=== PATIENT | male | born 1945 | race African-American/Black ===

== ENCOUNTER 2016-12-09 15:36 | Emergency (ER) | payer MEDICARE ==
[~2016-12-09] VITALS: Ht 170.2 cm; Wt 75.7 kg
[~2016-12-09 15:36] MED LIST: PAIN MED
[2016-12-09] MEDS ORDERED: HYDR-971 PO (15:58)
[2016-12-09] MEDS ORDERED: SULF1TAB24 PO (15:58)
[2016-12-09] MEDS ORDERED: MUPI15CR TP (15:58)
--- NOTE | 2016-12-09 15:58 | PHYS DOC ---
Past Medical History Past Medical History: Arthritis Past Surgical History: Other Additional Past Surgical Histo: HERNIA Alcohol Use: None Drug Use: None Adult General Chief Complaint Chief Complaint: INSECT BITE HPI HPI Patient is a 71 year old male with history of hep C who presents with an abscess on the left buttock that he noted yesterday. Patient believes it is from an insect bite. Review of Systems Review of Systems Constitutional: Denies fever or chills [] Musculoskeletal: Denies back pain or joint pain [] Integument: abscess on the left buttock Neurologic: Denies headache, focal weakness or sensory changes [] Allergies Allergies Allergies Coded Allergies Type Severity Reaction Last Updated Verified No Known Drug Allergies 07/17/14 No Physical Exam Physical Exam Constitutional: Well developed, well nourished, no acute distress, non-toxic appearance. [] Skin: Warm, dry, left buttock with none indurated firm area approximately 2 x 2 centimeter. There is a scab over the center of this area. The area is warm and erythematous. Back: No tenderness, no CVA tenderness. [] Extremities: No tenderness, no cyanosis, no clubbing, ROM intact, no edema. [] Neurologic: Alert and oriented X 3, normal motor function, normal sensory function, no focal deficits noted. [] Psychologic: Affect normal, judgement normal, mood normal. [] EKG EKG [] Radiology/Procedures Radiology/Procedures [] Course & Med Decision Making Course & Med Decision Making Pertinent Labs and Imaging studies reviewed. (See chart for details) Patient has an abscess on the left buttock that is not ready to be drained. Recommended warm compresses to the area. Discharged with Bactroban cream, and Bactrim. Follow-up with primary care doctor in one week. Instructed to return to the ED at any point symptoms worsen. Dragon Disclaimer Dragon Disclaimer This electronic medical record was generated, in whole or in part, using a voice recognition dictation system. Departure Departure Impression: Primary Impression: Abscess of buttock, left Disposition: 01 HOME, SELF-CARE Condition: STABLE Referrals: TIMBO CUNNINGHAM MD (PCP) Follow-up in one week Patient Instructions: Abscess Additional Instructions: You have an abscess on her left buttock that is not ready to be drained. Please apply warm compresses to the area twice a day. Take the prescribed antibiotics until completed. Take the pain medicine as needed for pain. You can get a donut cushion to sit on for comfort they area sold at any drug store including [employer]. Follow-up with your doctor in the next 7 days. Scripts Hydrocodone/Apap 5-325 (NORCO 5-325 TABLET) 1 Each Tablet 1-2 TAB PO Q4-6HRS, #10 TAB Prov: TITA DONG APRN 12/09/16 Mupirocin Calcium (BACTROBAN CREAM) 15 Gm Cream..g. 1 TULIO TP TID, #30 GM Prov: TITA DONG APRN 12/09/16 Sulfamethoxazole/Trimethoprim (BACTRIM DS TABLET) 1 Each Tablet 1 TAB PO BID, #20 TAB Prov: TITA DONG APRN 12/09/16 TITA DONG APRN Dec 09, 2016 15:58
[2016-12-09 16:00] VITALS: BP 149/76
[2016-12-09] MEDS ORDERED: DIPHTH,PERTUSS(ACELL),TET TOX 0.5 ML DISP.SYRIN. VAX IM ONE (16:00)
[2016-12-13] MEDS ORDERED: HYDR-971 PO (12:50)
== END 2016-12-09 16:15 | disposition home or self-care (01) ==
LOC: ER 15:36
DX: L02.31 Cutaneous abscess of buttock (principal)
CPT/HCPCS: 90471; 90715; 99283-25

== ENCOUNTER 2016-12-16 14:05 | Emergency (ER) | payer MEDICARE ==
[~2016-12-16] VITALS: Ht 170.2 cm; Wt 73.5 kg
[~2016-12-16 14:05] MED LIST changes: +HYDR-971 PO; +MUPI15CR TP; +SULF1TAB24 PO
[2016-12-16] MEDS ORDERED: fentaNYL PF VIAL 100 MCG/2 ML VIAL IV PRN (14:45)
[2016-12-16 15:17] LABS: BASO % 1 % (0-3); EOS % 2 % (0-3); HEMATOCRIT 40.9 % (39.0-53.0); HEMOGLOBIN 13.6 g/dL (13.0-17.5); LYMPH # 1.3 x10^3/uL (1.0-4.8); LYMPH % 24 % (24-48); MEAN CORPUSCULAR HEMOGLOBIN 29 pg (25-35); MEAN CORPUSCULAR HGB CONC 33 g/dL (31-37); MEAN CORPUSCULAR VOLUME 88 fL (79-100); MONO % 9 % (0-9); NEUT % 65 % (31-73); PLATELET COUNT 249 x10^3/uL (140-400); RED BLOOD COUNT 4.65 x10^6/uL (4.30-5.70); RED CELL DISTRIBUTION WIDTH 13.3 % (11.5-14.5); WHITE BLOOD COUNT 5.5 x10^3/uL (4.0-11.0)
[2016-12-16 15:25] LABS: CALCIUM 8.9 mg/dL (8.5-10.1); CREATININE 1.4 mg/dL (0.7-1.3); GFR 60.4; POTASSIUM 4.4 mmol/L (3.5-5.1)
[2016-12-16] MEDS ORDERED: IOHEXOL 300 MG/ML 75 ML VIAL IV ONE (15:30)
--- NOTE | 2016-12-16 15:31 | ED.ADGEN ---
Past Medical History Past Medical History: Arthritis Past Surgical History: Other Additional Past Surgical Histo: HERNIA Alcohol Use: None Drug Use: None Adult General Chief Complaint Chief Complaint: ABSCESS HPI HPI Patient is a 71 year old man, history of arthritis, who presents to the emergency department with complaint of worsening left buttock pain. Patient was initially seen on 12/09, and noted to have a left buttock abscess, that time the patient was started on antibiotics, and told to return if symptoms worsen. Patient then returned on 12/13, at that time the left buttock abscesses I&D, and patient was discharged in a second course of antibiotic. Patient presents stating that the pain has become worse, and has persistent drainage, he states that he was told "the packing would fall out on its own", but has not. Patient does state however that he is not change the dressing since he was seen in the ED. He denies any fevers or chills, states the pain is worse, is now lancinating and radiating down his left lower extremity. He denies any new injuries, any nausea or vomiting, any weakness, numbness or tingling. He states he has been compliant with the antibiotic regimen as prescribed. He states he has been using his typical pain medications at home without relief. Review of Systems Review of Systems Constitutional: Denies fever or chills. [] Eyes: Denies change in visual acuity. [] HENT: Denies nasal congestion or sore throat. [] Respiratory: Denies cough or shortness of breath. [] Cardiovascular: Denies chest pain or edema. [] GI: Denies abdominal pain, nausea, vomiting, bloody stools or diarrhea. [] : Denies dysuria. [] Musculoskeletal: Denies back pain or joint pain. Pain in the left buttock radiating down the left lower extremity. Integument: Denies rash. [] Neurologic: Denies headache, focal weakness or sensory changes. [] Endocrine: Denies polyuria or polydipsia. [] Lymphatic: Denies swollen glands. [] Psychiatric: Denies depression or anxiety. [] Current Medications Current Medications Current Medications Medications (Trade) Dose Ordered Sig/Gera Start Time Stop Time Status Last Admin Dose Admin Fentanyl Citrate (Fentanyl 2ml Vial) 25 mcg PRN Q15MIN PRN 12/16/16 14:45 12/17/16 14:44 12/16/16 14:58 25 MCG Info (Do NOT chart on this entry -- for MONITORING) 1 each PRN DAILY PRN 12/16/16 15:45 12/18/16 15:44 Iohexol (Omnipaque 300 Mg/ml) 75 ml 1X ONCE 12/16/16 15:30 12/16/16 15:31 DC 12/16/16 15:39 75 ML Allergies Allergies Allergies Coded Allergies Type Severity Reaction Last Updated Verified No Known Drug Allergies 07/17/14 No Physical Exam Physical Exam Constitutional: Well developed, well nourished, no acute distress, non-toxic appearance. [] HENT: Normocephalic, atraumatic, bilateral external ears normal, oropharynx moist, no oral exudates, nose normal. [] Eyes: PERRLA, EOMI, conjunctiva normal, no discharge. [] Neck: Normal range of motion, no tenderness, supple, no stridor. [] Cardiovascular:Heart rate regular rhythm, no murmur, S1, S2, no rubs or gallops. [] Lungs & Thorax: Tinnitus present at bases bilaterally, no rhonchi or rales appreciated. No wheezing.[] Abdomen: Bowel sounds normal, soft, no tenderness, no rebound, rigidity, no guarding, no masses, no pulsatile masses. [] Skin: Warm, dry, no erythema, no rash, over the medial aspect of the left buttock, patient has an area of 2 cm x 2 cm which is open, status post I&D, with active drainage of purulent serosanguineous material, patient has area of induration and tenderness that extends a tenderness by 600 m across this region , difficult to examine secondary to patient discomfort, although it does not appear to include upon the rectum, or extend beyond the subcutaneous continues region of the buttock, difficult examination second to patient compliance. No surrounding cellulitis, no other areas of abnormality on examination. Back: No tenderness, no CVA tenderness. [] Extremities: No tenderness, no cyanosis, no clubbing, ROM intact, no edema. [] Neurologic: Alert and oriented X 3, normal motor function, normal sensory function, no focal deficits noted. [] Psychologic: Affect normal, judgement normal, mood normal. [] Current Patient Data Vital Signs Vital Signs Date Time Temp Pulse Resp B/P (MAP) Pulse Ox O2 Delivery O2 Flow Rate FiO2 12/16/16 15:50 80 20 129/63 (85) 98 Room Air 12/16/16 14:19 98.0 98.0 Lab Values Laboratory Tests Test 12/16/16 14:50 White Blood Count 5.5 x10^3/uL (4.0-11.0) Red Blood Count 4.65 x10^6/uL (4.30-5.70) Hemoglobin 13.6 g/dL (13.0-17.5) Hematocrit 40.9 % (39.0-53.0) Mean Corpuscular Volume 88 fL (79-100) Mean Corpuscular Hemoglobin 29 pg (25-35) Mean Corpuscular Hemoglobin Concent 33 g/dL (31-37) Red Cell Distribution Width 13.3 % (11.5-14.5) Platelet Count 249 x10^3/uL (140-400) Neutrophils (%) (Auto) 65 % (31-73) Lymphocytes (%) (Auto) 24 % (24-48) Monocytes (%) (Auto) 9 % (0-9) Eosinophils (%) (Auto) 2 % (0-3) Basophils (%) (Auto) 1 % (0-3) Neutrophils # (Auto) 3.6 x10^3uL (1.8-7.7) Lymphocytes # (Auto) 1.3 x10^3/uL (1.0-4.8) Monocytes # (Auto) 0.5 x10^3/uL (0.0-1.1) Eosinophils # (Auto) 0.1 x10^3/uL (0.0-0.7) Basophils # (Auto) 0.0 x10^3/uL (0.0-0.2) Sodium Level 138 mmol/L (136-145) Potassium Level 4.4 mmol/L (3.5-5.1) Chloride Level 101 mmol/L (98-107) Carbon Dioxide Level 30 mmol/L (21-32) Anion Gap 7 (6-14) Blood Urea Nitrogen 12 mg/dL (8-26) Creatinine 1.4 mg/dL (0.7-1.3) H Estimated GFR (Cockcroft-Gault) 60.4 Glucose Level 83 mg/dL (70-99) Calcium Level 8.9 mg/dL (8.5-10.1) Laboratory Tests 12/16/16 14:50 Laboratory Tests 12/16/16 14:50 EKG EKG Not indicated.[] Radiology/Procedures Radiology/Procedures [] Course & Med Decision Making Course & Med Decision Making Pertinent Labs and Imaging studies reviewed. (See chart for details) Patient states that he experiences significant discomfort with his previous I&D despite attempts to assess the region, I did discuss with patient it is difficult to anesthetize the area with the degree of inflammation. He states he has been compliant with all medications without relief. He is agreeable to receiving additional imaging the area to rule out any tracking, laboratory studies, and pain medication. Tetanus was updated in the patient's prior evaluation. Laboratory studies and imaging are pending at time of shift change, information as above was discussed with Dr. Garcia, who will follow-up on these results and disposition the patient. CT IMPRESSION: Increased vascularity, subcutaneous stranding and skin thickening involving the left buttock compatible with the history provided, abscess. No discrete fluid collection, amenable to drainage is seen. Chronic musculoskeletal changes. Enlarged prostate I have received this patient in sign out. I have discussed the results of the CT scan with the patient and reevaluated the patient prior to discharge. I have given the patient instructions for follow-up in 2-3 days with His primary care doctor, patient and family agree to follow-up as directed for recheck and reevaluation of the wound. Patient is already on antibiotics he will continue to take . Wound Care instructions have been provided to the patient. Gen: Alert and oriented 3, no acute distress, nontoxic. At the time of my evaluation vital signs are within normal limits Resp: No tachypnea, no respiratory distress CV: Regular rate and rhythm, normal perfusion Abdomen non distended Skin: incision at left buttock healing by secondary intention, no obvious abscess, has induration, no surrounding cellulitis Extr: wnl, no DVT Neuro: no focal deficits Psych: normal mood, normal attention Dragon Disclaimer Dragon Disclaimer This electronic medical record was generated, in whole or in part, using a voice recognition dictation system. Departure Impression: Primary Impression: Abscess of buttock, left Disposition: HOME, SELF-CARE Condition: STABLE Patient Instructions: Wound Care, [id number] Additional Instructions: Please follow-up with your PCP for recheck and reevaluation in 2-3 days. Please change wound dressings 2-3 times a day, keep wound dry and clean. Please do not apply peroxide or alcohol to the wound. Please take your antibiotics as directed. If he started developing worsening pain or worsening symptoms return to the ED immediately for further reevaluation and recheck. JESSICA FARIAS DO Dec 16, 2016 15:31 Astrid GARCIA MD Dec 16, 2016 16:27
[2016-12-16] MEDS ORDERED: CONTRAST GIVEN MC PRN (15:45)
[2016-12-16 15:50] VITALS: BP 129/63
--- NOTE | 2016-12-16 15:59 | RAD ---
Indication left buttock abscess 4-5 days ago. Axial images through the pelvis were obtained. IV contrast, approximately 75 cc of Omnipaque 300 was administered. No recent imaging of the pelvis is available. The visualized liver and kidneys appear unremarkable. There is some mild adenopathy in the left groin likely reactive. The prostate is mildly enlarged. There are degenerative changes in the visualized lumbar spine. There is some increased vascularity seen in the area of the left buttock. This would be compatible with the history of recent abscess. There is some stranding in the soft tissues of the left buttock and some skin thickening but a discrete abscess, amenable to drainage is not seen. IMPRESSION: Increased vascularity, subcutaneous stranding and skin thickening involving the left buttock compatible with the history provided, abscess. No discrete fluid collection, amenable to drainage is seen. Chronic musculoskeletal changes. Enlarged prostate PQRS Compliance Statement: One or more of the following individualized dose reduction techniques were utilized for this examination: 1. Automated exposure control 2. Adjustment of the mA and/or kV according to patient size 3. Use of iterative reconstruction technique
== END 2016-12-16 16:46 | disposition home or self-care (01) ==
LOC: ER 14:05
DX: L02.31 Cutaneous abscess of buttock (principal)
CPT/HCPCS: 36415; 74170; 80048; 85025; 96374; 99285; J3010; Q9967

== ENCOUNTER → 2016-12-19 | Outpatient (CLI) | payer MEDICARE ==
[2016-12-16 15:50] VITALS: BP 129/63
== END | disposition home or self-care (01) ==
LOC: PMGWOUND 09:15
PROVIDERS: ATTEND Emergency Medicine Undersea and Hyperbaric Medicine
DX: L02.31 Cutaneous abscess of buttock (principal); Z87.891 Personal history of nicotine dependence
CPT/HCPCS: 99214

== ENCOUNTER → 2016-12-19 | Day surgery (SDC) | payer BC ==
[~2016-12-19] MED LIST changes: +ALLO300T PO; +ASPI-630 PO; +CEPH-263 PO; +IV RINGERS,LACTATED 1000ML 1,000 ML IV SCH; +LIDOCAINE 1% PF 2 ML VIAL. ID PRN; +LIDOCAINE 2% PF Vial for OR 5 ML VIAL. ONE; +LOSA100T6 PO; +MIDAZOLAM HCL/PF 2 MG/2 ML VIAL. IV PRN; +PROPOFOL 40 ML IV ONE; +fentaNYL PF VIAL 100 MCG/2 ML VIAL IV PRN
[2016-12-19 12:55] VITALS: BP 128/80
--- NOTE | 2016-12-20 03:09 | CONS ---
DATE OF CONSULTATION: 12/19/2016 REFERRING PHYSICIAN: Talya Rodriguez MD REASON: History of colonic polyps. HISTORY OF PRESENT ILLNESS: A 64-year-old male with past medical history significant for diverticulosis, history of colonic polyps, hypertension as well as gout is seen for interval exam. Bowel habits are regular without diarrhea or constipation. There has been no melena and/or hematochezia. Weight and appetite are stable. Family history is unrevealing for colon polyps or colon cancer. He is otherwise without additional complaints. PAST MEDICAL HISTORY: Gout, hypertension, history of colonic polyps, diverticulosis. ALLERGIES: None. MEDICATIONS: Include allopurinol, aspirin and losartan. FAMILY HISTORY: Significant for diabetes. SOCIAL HISTORY: He is a nonsmoker, social drinker. PAST SURGICAL HISTORY: Noncontributory. REVIEW OF SYSTEMS: Per records. PHYSICAL EXAMINATION: GENERAL: Well-nourished, well-developed male. VITAL SIGNS: Temperature is 97, pulse 66, respirations 20. HEENT: Normocephalic and atraumatic head. Pupils and extraocular movements not tested. Sclerae anicteric. NECK: Supple. LUNGS: Clear. CARDIOVASCULAR: Reveals S1, S2, without S3, S4 or appreciable murmur. ABDOMEN: Soft abdomen, normal bowel sounds, without appreciable hepatosplenomegaly. EXTREMITIES: Reveals no cyanosis, clubbing or edema. IMPRESSION: History of colonic polyps. Surveillance exam is warranted at this time. Risks and benefits of procedure have been previously discussed including risk of hemorrhage or perforation. He is willing to proceed at this time. MARIO ALBERTO BRENNAN MD DR: GUI/nts JOB#: [id number] / [id number]
== END | disposition home or self-care (01) ==
LOC: EDBD → ENDOS 10:59 → MERGE 10:59
PROVIDERS: ATTEND Internal Medicine Gastroenterology
DX: Z09 Encounter for follow-up examination after completed treatment for conditions other than malignant neoplasm (principal); Z86.010 Personal history of colon polyps; K64.0 First degree hemorrhoids; K57.30 Diverticulosis of large intestine without perforation or abscess without bleeding; I10 Essential (primary) hypertension; M19.91 Primary osteoarthritis, unspecified site; Z87.39 Personal history of other diseases of the musculoskeletal system and connective tissue
CPT/HCPCS: 45378; J2704; J2001

== ENCOUNTER → 2016-12-30 | Outpatient (CLI) | payer MEDICARE ==
[2016-12-16 15:50] VITALS: BP 129/63
[~2016-12-30] MED LIST changes: -ALLO300T PO; -ASPI-630 PO; -CEPH-263 PO; -IV RINGERS,LACTATED 1000ML 1,000 ML IV SCH; -LIDOCAINE 1% PF 2 ML VIAL. ID PRN; -LIDOCAINE 2% PF Vial for OR 5 ML VIAL. ONE; -LOSA100T6 PO; -MIDAZOLAM HCL/PF 2 MG/2 ML VIAL. IV PRN; -PROPOFOL 40 ML IV ONE; -fentaNYL PF VIAL 100 MCG/2 ML VIAL IV PRN
== END | disposition home or self-care (01) ==
LOC: PMGWOUND 14:14
PROVIDERS: ATTEND Emergency Medicine Undersea and Hyperbaric Medicine
DX: L02.31 Cutaneous abscess of buttock (principal); Z87.891 Personal history of nicotine dependence
CPT/HCPCS: 99213

== ENCOUNTER → 2017-01-13 | Outpatient (CLI) | payer MEDICARE ==
[2016-12-16 15:50] VITALS: BP 129/63
[~2017-01-13] MED LIST changes: +ALLO300T PO; +ASPI-630 PO; +CEPH-263 PO; +LOSA100T6 PO
== END | disposition home or self-care (01) ==
LOC: PMGWOUND 14:00
PROVIDERS: ATTEND Emergency Medicine Undersea and Hyperbaric Medicine
DX: L02.31 Cutaneous abscess of buttock (principal); I10 Essential (primary) hypertension; M19.91 Primary osteoarthritis, unspecified site; Z87.891 Personal history of nicotine dependence
CPT/HCPCS: 99213

== ENCOUNTER → 2017-01-16 | Outpatient (CLI) | payer MEDICARE ==
[~2017-01-16] MED LIST changes: -CEPH-263 PO
== END | disposition home or self-care (01) ==
LOC: PMGWOUND 13:09
PROVIDERS: ATTEND Emergency Medicine Undersea and Hyperbaric Medicine
DX: L02.31 Cutaneous abscess of buttock (principal); I10 Essential (primary) hypertension; M19.91 Primary osteoarthritis, unspecified site; Z87.891 Personal history of nicotine dependence
CPT/HCPCS: 99213

== ENCOUNTER → 2017-01-20 | Outpatient (CLI) | payer MEDICARE | END | disposition home or self-care (01) | LOC: PMGWOUND 13:49 | PROVIDERS: ATTEND Emergency Medicine Undersea and Hyperbaric Medicine | DX: L02.31 Cutaneous abscess of buttock (principal); I10 Essential (primary) hypertension; M19.90 Unspecified osteoarthritis, unspecified site; Z87.891 Personal history of nicotine dependence | CPT/HCPCS: 99213 ==

== ENCOUNTER → 2017-01-27 | Outpatient (CLI) | payer MEDICARE | END | disposition home or self-care (01) | LOC: PMGWOUND 13:41 | PROVIDERS: ATTEND Emergency Medicine Undersea and Hyperbaric Medicine | DX: L02.31 Cutaneous abscess of buttock (principal); I10 Essential (primary) hypertension; M19.91 Primary osteoarthritis, unspecified site; Z86.010 Personal history of colon polyps; Z87.891 Personal history of nicotine dependence | CPT/HCPCS: 99214 ==

== ENCOUNTER 2017-02-18 16:17 | Emergency (ER) | payer OTHER, MEDICARE ==
[2017-02-18 18:35] LABS: ADD MAN DIFF? NO
[2017-02-18 18:39] LABS: BASO % 1 % (0-3); EOS # 0.2 x10^3/uL (0.0-0.7); EOS % 4 % (0-3); HEMOGLOBIN 13.7 g/dL (13.0-17.5); LYMPH # 1.8 x10^3/uL (1.0-4.8); LYMPH % 42 % (24-48); MEAN CORPUSCULAR HEMOGLOBIN 29 pg (25-35); MEAN CORPUSCULAR HGB CONC 33 g/dL (31-37); MEAN CORPUSCULAR VOLUME 88 fL (79-100); MONO # 0.4 x10^3/uL (0.0-1.1); MONO % 9 % (0-9); NEUT # 1.8 x10^3uL (1.8-7.7); NEUT % 44 % (31-73); PLATELET COUNT 139 x10^3/uL (140-400); RED BLOOD COUNT 4.78 x10^6/uL (4.30-5.70); RED CELL DISTRIBUTION WIDTH 13.4 % (11.5-14.5); WHITE BLOOD COUNT 4.2 x10^3/uL (4.0-11.0)
[2017-02-18 18:56] LABS: ANION GAP 5 (6-14); BLOOD UREA NITROGEN 13 mg/dL (8-26); BUN/CREATININE RATIO 13 (6-20); CALCIUM 8.9 mg/dL (8.5-10.1); CARBON DIOXIDE 31 mmol/L (21-32); CHLORIDE 104 mmol/L (98-107); GFR 88.9; GLUCOSE 103 mg/dL (70-99); POTASSIUM 4.9 mmol/L (3.5-5.1); SODIUM 140 mmol/L (136-145)
[2017-02-18 19:02] LABS: ALBUMIN 3.7 g/dL (3.4-5.0); ALBUMIN/GLOBULIN RATIO 1.1 (1.0-1.7); ALK PHOS 46 U/L (46-116); ALT (SGPT) 18 U/L (16-63); AST (SGOT) 19 U/L (15-37); TOTAL BILIRUBIN 0.4 mg/dL (0.2-1.0)
[2017-02-18 19:15] LABS: NT-PRO BNP 43 pg/mL (0-124)
== END 2017-02-18 19:50 | disposition home or self-care (01) ==
LOC: ER 16:17
DX: R60.0 Localized edema (principal); M19.90 Unspecified osteoarthritis, unspecified site; M10.9 Gout, unspecified
CPT/HCPCS: 36415; 73610; 80053; 83880; 85025; 93971; 99285

== ENCOUNTER 2017-02-19 11:06 | Emergency (ER) | payer OTHER ==
[2017-02-19] MEDS: GADOBUTROL 7.5 MMOL/7.5 ML VIAL IV (13:56)
== END 2017-02-19 16:42 | disposition home or self-care (01) ==
LOC: ER 11:06
DX: L03.116 Cellulitis of left lower limb (principal); M10.9 Gout, unspecified; M19.90 Unspecified osteoarthritis, unspecified site
CPT/HCPCS: 73723; 96374; 99284-25; A9585

== ENCOUNTER 2017-02-25 16:02 | Emergency (ER) | payer MEDICARE, OTHER | END 2017-02-25 17:38 | disposition home or self-care (01) | LOC: ER 16:02 | DX: M25.472 Effusion, left ankle (principal); M19.90 Unspecified osteoarthritis, unspecified site; M10.9 Gout, unspecified | CPT/HCPCS: 99282 ==

== ENCOUNTER 2017-08-05 12:11 | Emergency (ER) | payer MEDICARE ==
[2017-08-05] MEDS: HYDROcodone/APAP 10/325 1 TAB TABLET PO (13:21)
[2017-08-05] MEDS: diazePAM 5 MG TABLET PO (13:22)
[2017-08-05] MEDS: KETOROLAC 60 MG/2 ML INJ. IM (13:22)
== END 2017-08-05 14:39 | disposition home or self-care (01) ==
LOC: ER 12:11
DX: S16.1XXA Strain of muscle, fascia and tendon at neck level, initial encounter (principal); M43.6 Torticollis; M48.00 Spinal stenosis, site unspecified; I10 Essential (primary) hypertension; Z79.891 Long term (current) use of opiate analgesic; Z79.899 Other long term (current) drug therapy; X58.XXXA Exposure to other specified factors, initial encounter; Y93.89 Activity, other specified; Y92.89 Other specified places as the place of occurrence of the external cause; Y99.8 Other external cause status
CPT/HCPCS: 72125; 96372; 99284-25; J1885

== ENCOUNTER 2017-10-28 13:21 | Inpatient (IN) | payer MEDICARE ==
[~2017-10-28] VITALS: Ht 170.2 cm; Wt 77.6 kg
[~2017-10-28 13:21] MED LIST changes: +CEPH-263 PO; -LOSA100T6 PO; +LOSA100T7 PO; +PRED20TA PO
--- NOTE | 2017-10-28 13:45 | EKG ---
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
--- NOTE | 2017-10-28 14:19 | RAD ---
Single view of the chest. 10/28/2017 1:57 PM Indication: UPPER CHEST PAIN X TODAY Comparison: Chest radiograph July 17, 2009 Findings: There is no focal consolidation. There is no pleural effusion or pneumothorax. Heart size is normal. No acute osseous abnormalities are seen. Impression: No evidence of acute cardiopulmonary process. Electronically signed by: Matt Bach MD (10/28/2017 2:16 PM) [id number]
[2017-10-28 14:20] LABS: BASO % 1 % (0-3); EOS # 0.1 x10^3/uL (0.0-0.7); EOS % 2 % (0-3); HEMATOCRIT 40.8 % (39.0-53.0); HEMOGLOBIN 14.1 g/dL (13.0-17.5); LYMPH # 1.1 x10^3/uL (1.0-4.8); LYMPH % 34 % (24-48); MEAN CORPUSCULAR HEMOGLOBIN 30 pg (25-35); MEAN CORPUSCULAR HGB CONC 34 g/dL (31-37); MEAN CORPUSCULAR VOLUME 87 fL (79-100); MONO # 0.5 x10^3/uL (0.0-1.1); MONO % 16 % (0-9); NEUT # 1.5 x10^3uL (1.8-7.7); NEUT % 46 % (31-73); PLATELET COUNT 164 x10^3/uL (140-400); RED CELL DISTRIBUTION WIDTH 13.5 % (11.5-14.5); WHITE BLOOD COUNT 3.2 x10^3/uL (4.0-11.0)
[2017-10-28 14:39] LABS: CALCIUM 9.4 mg/dL (8.5-10.1); CREATININE 1.1 mg/dL (0.7-1.3); GFR 79.6; POTASSIUM 3.9 mmol/L (3.5-5.1)
[2017-10-28 14:45] LABS: ALBUMIN 3.7 g/dL (3.4-5.0); ALBUMIN/GLOBULIN RATIO 1.1 (1.0-1.7); TOTAL BILIRUBIN 0.5 mg/dL (0.2-1.0); TOTAL PROTEIN 7.2 g/dL (6.4-8.2)
[2017-10-28 15:08] LABS: PROTHROMBIN TIME PATIENT 14.5 SEC (11.7-14.0)
--- NOTE | 2017-10-28 15:21 | PHYS DOC ---
Past Medical History Past Medical History: Dementia Additional Past Medical Histor: GOUT Past Surgical History: Other Additional Past Surgical Histo: KIDNEY Alcohol Use: None Drug Use: None Adult General Chief Complaint Chief Complaint: CHEST PAIN HPI HPI Patient is a 72 year old [f__sex] who presents with [] Review of Systems Review of Systems Constitutional: Denies fever or chills [] Eyes: Denies change in visual acuity, redness, or eye pain [] HENT: Denies nasal congestion or sore throat [] Respiratory: Denies cough or shortness of breath [] Cardiovascular: No additional information not addressed in HPI [] GI: Denies abdominal pain, nausea, vomiting, bloody stools or diarrhea [] : Denies dysuria or hematuria [] Musculoskeletal: Denies back pain or joint pain [] Integument: Denies rash or skin lesions [] Neurologic: Denies headache, focal weakness or sensory changes [] Endocrine: Denies polyuria or polydipsia [] All other systems were reviewed and found to be within normal limits, except as documented in this note. Allergies Allergies Allergies Coded Allergies Type Severity Reaction Last Updated Verified No Known Drug Allergies 07/17/14 No Physical Exam Physical Exam Constitutional: Well developed, well nourished, no acute distress, non-toxic appearance. [] HENT: Normocephalic, atraumatic, bilateral external ears normal, oropharynx moist, no oral exudates, nose normal. [] Eyes: PERRLA, EOMI, conjunctiva normal, no discharge. [] Neck: Normal range of motion, no tenderness, supple, no stridor. [] Cardiovascular:Heart rate regular rhythm, no murmur [] Lungs & Thorax: Bilateral breath sounds clear to auscultation [] Abdomen: Bowel sounds normal, soft, no tenderness, no masses, no pulsatile masses. [] Skin: Warm, dry, no erythema, no rash. [] Back: No tenderness, no CVA tenderness. [] Extremities: No tenderness, no cyanosis, no clubbing, ROM intact, no edema. [] Neurologic: Alert and oriented X 3, normal motor function, normal sensory function, no focal deficits noted. [] Psychologic: Affect normal, judgement normal, mood normal. [] Current Patient Data Vital Signs Vital Signs Date Time Temp Pulse Resp B/P (MAP) Pulse Ox O2 Delivery O2 Flow Rate FiO2 9/11/18 14:05 98.2 77 18 124/70 (88) 98 Room Air 98.2 Lab Values Laboratory Tests Test 10/28/17 14:05 10/28/17 14:51 White Blood Count 3.2 x10^3/uL (4.0-11.0) L Red Blood Count 4.70 x10^6/uL (4.30-5.70) Hemoglobin 14.1 g/dL (13.0-17.5) Hematocrit 40.8 % (39.0-53.0) Mean Corpuscular Volume 87 fL (79-100) Mean Corpuscular Hemoglobin 30 pg (25-35) Mean Corpuscular Hemoglobin Concent 34 g/dL (31-37) Red Cell Distribution Width 13.5 % (11.5-14.5) Platelet Count 164 x10^3/uL (140-400) Neutrophils (%) (Auto) 46 % (31-73) Lymphocytes (%) (Auto) 34 % (24-48) Monocytes (%) (Auto) 16 % (0-9) H Eosinophils (%) (Auto) 2 % (0-3) Basophils (%) (Auto) 1 % (0-3) Neutrophils # (Auto) 1.5 x10^3uL (1.8-7.7) L Lymphocytes # (Auto) 1.1 x10^3/uL (1.0-4.8) Monocytes # (Auto) 0.5 x10^3/uL (0.0-1.1) Eosinophils # (Auto) 0.1 x10^3/uL (0.0-0.7) Basophils # (Auto) 0.0 x10^3/uL (0.0-0.2) Sodium Level 140 mmol/L (136-145) Potassium Level 3.9 mmol/L (3.5-5.1) Chloride Level 103 mmol/L (98-107) Carbon Dioxide Level 28 mmol/L (21-32) Anion Gap 9 (6-14) Blood Urea Nitrogen 28 mg/dL (8-26) H Creatinine 1.1 mg/dL (0.7-1.3) Estimated GFR (Cockcroft-Gault) 79.6 BUN/Creatinine Ratio 25 (6-20) H Glucose Level 91 mg/dL (70-99) Calcium Level 9.4 mg/dL (8.5-10.1) Total Bilirubin 0.5 mg/dL (0.2-1.0) Aspartate Amino Transferase (AST) 20 U/L (15-37) Alanine Aminotransferase (ALT) 20 U/L (16-63) Alkaline Phosphatase 44 U/L (46-116) L Troponin I Quantitative < 0.017 ng/mL (0.000-0.055) JV-Byp-O-Type Natriuretic Peptide 30 pg/mL (0-124) Total Protein 7.2 g/dL (6.4-8.2) Albumin 3.7 g/dL (3.4-5.0) Albumin/Globulin Ratio 1.1 (1.0-1.7) Prothrombin Time 14.5 SEC (11.7-14.0) H Prothrombin Time INR 1.2 (0.8-1.1) H Laboratory Tests 10/28/17 14:05 Laboratory Tests 10/28/17 14:05 EKG EKG 1340- SR no STEMI read by Dr. Connors[] Radiology/Procedures Radiology/Procedures [] Course & Med Decision Making Course & Med Decision Making Pertinent Labs and Imaging studies reviewed. (See chart for details) [] Dragon Disclaimer Dragon Disclaimer This electronic medical record was generated, in whole or in part, using a voice recognition dictation system. Departure Departure Referrals: TIMBO CUNNINGHAM MD (PCP) LOLI BYRNE APRN Oct 28, 2017 15:21
[2017-10-28] MEDS ORDERED: ASPIRIN 325 MG TABLET PO ONE (15:30)
[2017-10-28] MEDS ORDERED: TEMAZEPAM 7.5 MG CAPSULE PO PRN (16:00)
[2017-10-28] MEDS ORDERED: ONDANSETRON PF 4 MG/2 ML VIAL. IV PRN (16:00)
[2017-10-28] MEDS ORDERED: ACETAMINOPHEN/CODEINE 300/30MG TABLET. PO PRN (16:00)
[2017-10-28] MEDS ORDERED: ACETAMINOPHEN 500 MG TABLET PO PRN (16:00)
[2017-10-28] MEDS ORDERED: HYDROcodone/APAP 5/325MG 1 TAB TABLET PO PRN (16:00)
[2017-10-28] MEDS ORDERED: ONDANSETRON ODT 4 MG TAB.RAPDIS. PO PRN (16:00)
[2017-10-28] MEDS ORDERED: CEPHALEXIN 250 MG CAPSULE. PO SCH (17:00)
[2017-10-28] MEDS: MORPHINE SULFATE 2 MG/ML VIAL. IV PRN (17:36)
--- NOTE | 2017-10-28 18:11 | PDOC1 ---
History and Physical Date of Admission Date of Admission DATE: 10/28/17 TIME: 18:06 Identification/Chief Complaint Chief Complaint neck pain Source Source: Caregiver, Chart review, Patient History of Present Illness History of Present Illness Pleasant 72-year-old -[place] male, no known coronary artery disease, neck pain intermittent 1 year now, no other symptoms of dizziness lightheadedness or radicular pain in bilateral upper extremity. Patient admitted because of a mention of chest pain. History of gout, may be dry cough 2 weeks on ROS. Labs are unremarkable except for mild neutropenia 3.2. Not taking any more Bactrim or Keflex that is on file. Admitted because of chest pain rule out. But neck exam is significant for limited range of motion on bilateral left and right flexion hyperextension and flexion hence I will order a CT neck soft tissue. Can go from there Denies any trauma to the neck or sleeping oddly recently Past Medical History Cardiovascular: HTN Rheumatologic: Gout Past Surgical History Past Surgical History: No pertinent history Family History Family History: No Significant Social History Smoke: No ALCOHOL: none Drugs: None Current Medications Current Medications Current Medications Aspirin (Alvaro Aspirin) 325 mg 1X ONCE PO Last administered on 10/28/17at 17:36 ; Start 10/28/17 at 15:30; Stop 10/28/17 at 15:31; Status DC Ondansetron HCl (Zofran) 4 mg PRN Q6HRS PRN IV NAUSEA/VOMITING; Start 10/28/17 at 16:00 Ondansetron HCl (Zofran Odt) 4 mg PRN Q6HRS PRN PO NAUSEA/VOMITING; Start 10/28 at 16:00 Acetaminophen (Tylenol) 500 mg PRN Q6HRS PRN PO MILD PAIN / TEMP; Start at 16:00 Acetaminophen/ Codeine Phosphate (Tylenol #3) 1 tab PRN Q6HRS PRN PO PAIN MILD ; Start 10/28/17 at 16:00 Morphine Sulfate (Morphine Sulfate) 2 mg PRN Q2HR PRN IV PAIN SEVERE Last administered on 10/28/17at 17:36; Start 10/28/17 at 16:00 Acetaminophen/ Hydrocodone Bitart (Lortab 5/325) 1 tab PRN Q4HRS PRN PO PAIN MODERATE; Start 10/28/17 at 16:00 Temazepam (Restoril) 7.5 mg PRN QHS PRN PO INSOMNIA; Start 10/28/17 at 16:00 Allopurinol (Zyloprim) 300 mg DAILY PO ; Start 10/29/17 at 09:00 Aspirin (Children'S Aspirin) 81 mg DAILY PO ; Start 10/29/17 at 09:00 Cephalexin HCl (Keflex) 250 mg QID PO ; Start 10/28/17 at 17:00; Stop 10/28/17 at 18:05; Status DC Acetaminophen/ Hydrocodone Bitart (Lortab 5/325) 1 tab TID PO ; Start 10/28/17 at 21:00 Mupirocin (Bactroban) 1 angle TID TP ; Start 10/28/17 at 21:00 Prednisone (Prednisone) 40 mg DAILY PO ; Start 10/29/17 at 09:00 Trimethoprim/ Sulfamethoxazole (Bactrim Ds) 1 tab BID PO ; Start 10/28/17 at 21: 00; Stop 10/28/17 at 21:00; Status DC Losartan Potassium (Cozaar) 100 mg DAILY PO ; Start 10/29/17 at 09:00 Cyclobenzaprine HCl (Flexeril) 10 mg TID PO ; Start 10/28/17 at 21:00; Status UNV Cyclobenzaprine HCl (Flexeril) 10 mg 1X ONCE PO ; Start 10/28/17 at 18:15; Stop 10/28/17 at 18:16; Status UNV Celecoxib (CeleBREX) 100 mg BID PO ; Start 10/28/17 at 21:00; Status UNV Active Scripts Active [place] 5-325 Tablet (Acetaminophen/Hydrocodone Bitart) 1 Each Tablet 1 Tab PO BID 4 Days Prednisone 20 Mg Tablet 2 Tab PO DAILY 5 Days Keflex (Cephalexin) 250 Mg Capsule 1 Cap PO QID [place] 5-325 Tablet (Acetaminophen/Hydrocodone Bitart) 1 Each Tablet 1 Tab PO PRN Q6HRS PRN [place] 5-325 Tablet (Acetaminophen/Hydrocodone Bitart) 1 Each Tablet 1-2 Tab PO Q4-6HRS Bactroban Cream (Mupirocin) 15 Gm Cream..g. 1 Angle TP TID Bactrim Ds Tablet (Sulfamethoxazole/Trimethoprim) 1 Each Tablet 1 Tab PO BID Reported [Pain Med] Aspirin 81 Mg Tab.chew 81 Mg PO DAILY Allopurinol 300 Mg Tablet 300 Mg PO Losartan Potassium 100 Mg Tablet 100 Mg PO Allergies Allergies: Coded Allergies: No Known Drug Allergies (Unverified , 07/17/14) ROS Review of System As per history of present illness, the rest of ROS 14 point negative Physical Exam General: Alert, Oriented X3, Cooperative, No acute distress HEENT: Atraumatic, PERRLA, EOMI, Mucous membr. moist/pink, Other (limited flexion hyperextension and bilateral left and right movements of the neck because of pain) Lungs: Clear to auscultation, Normal air movement Heart: S1S2, RRR, no thrills, no rubs, no gallops, no murmurs Cardiovascular: S1, S2 Abdomen: Normal bowel sounds, Soft, No tenderness, No hepatosplenomegaly, No masses Male Genitals Exam: normal genitalia, normal prostate Rectal Exam: not examined PELVIC: Nml ext genitalia Extremities: No clubbing, No cyanosis, No edema, Normal pulses, No tenderness/ swelling Skin: No rashes, No breakdown, No significant lesion Neuro: Normal gait, Normal speech, Strength at 5/5 X4 ext, Normal tone, Sensation intact, Cranial nerves 3-12 NL, Reflexes 2+ Psych/Mental Status: Mental status NL, Mood NL Vitals Vitals Vital Signs Date Time Temp Pulse Resp B/P (MAP) Pulse Ox O2 Delivery O2 Flow Rate FiO2 10/28/17 17:36 18 98 Room Air 10/28/17 17:00 68 133/69 (90) 10/28/17 14:05 98.2 98.2 Labs Labs Laboratory Tests Test 10/28/17 14:05 10/28/17 14:51 White Blood Count 3.2 x10^3/uL (4.0-11.0) Red Blood Count 4.70 x10^6/uL (4.30-5.70) Hemoglobin 14.1 g/dL (13.0-17.5) Hematocrit 40.8 % (39.0-53.0) Mean Corpuscular Volume 87 fL (79-100) Mean Corpuscular Hemoglobin 30 pg (25-35) Mean Corpuscular Hemoglobin Concent 34 g/dL (31-37) Red Cell Distribution Width 13.5 % (11.5-14.5) Platelet Count 164 x10^3/uL (140-400) Neutrophils (%) (Auto) 46 % (31-73) Lymphocytes (%) (Auto) 34 % (24-48) Monocytes (%) (Auto) 16 % (0-9) Eosinophils (%) (Auto) 2 % (0-3) Basophils (%) (Auto) 1 % (0-3) Neutrophils # (Auto) 1.5 x10^3uL (1.8-7.7) Lymphocytes # (Auto) 1.1 x10^3/uL (1.0-4.8) Monocytes # (Auto) 0.5 x10^3/uL (0.0-1.1) Eosinophils # (Auto) 0.1 x10^3/uL (0.0-0.7) Basophils # (Auto) 0.0 x10^3/uL (0.0-0.2) Sodium Level 140 mmol/L (136-145) Potassium Level 3.9 mmol/L (3.5-5.1) Chloride Level 103 mmol/L (98-107) Carbon Dioxide Level 28 mmol/L (21-32) Anion Gap 9 (6-14) Blood Urea Nitrogen 28 mg/dL (8-26) Creatinine 1.1 mg/dL (0.7-1.3) Estimated GFR (Cockcroft-Gault) 79.6 BUN/Creatinine Ratio 25 (6-20) Glucose Level 91 mg/dL (70-99) Calcium Level 9.4 mg/dL (8.5-10.1) Total Bilirubin 0.5 mg/dL (0.2-1.0) Aspartate Amino Transf (AST/SGOT) 20 U/L (15-37) Alanine Aminotransferase (ALT/SGPT) 20 U/L (16-63) Alkaline Phosphatase 44 U/L (46-116) Troponin I Quantitative < 0.017 ng/mL (0.000-0.055) BP-Rzh-[id number]-Type Natriuretic Peptide 30 pg/mL (0-124) Total Protein 7.2 g/dL (6.4-8.2) Albumin 3.7 g/dL (3.4-5.0) Albumin/Globulin Ratio 1.1 (1.0-1.7) Prothrombin Time 14.5 SEC (11.7-14.0) Prothromb Time International Ratio 1.2 (0.8-1.1) Laboratory Tests Test 10/28/17 14:05 10/28/17 14:51 White Blood Count 3.2 x10^3/uL (4.0-11.0) Red Blood Count 4.70 x10^6/uL (4.30-5.70) Hemoglobin 14.1 g/dL (13.0-17.5) Hematocrit 40.8 % (39.0-53.0) Mean Corpuscular Volume 87 fL (79-100) Mean Corpuscular Hemoglobin 30 pg (25-35) Mean Corpuscular Hemoglobin Concent 34 g/dL (31-37) Red Cell Distribution Width 13.5 % (11.5-14.5) Platelet Count 164 x10^3/uL (140-400) Neutrophils (%) (Auto) 46 % (31-73) Lymphocytes (%) (Auto) 34 % (24-48) Monocytes (%) (Auto) 16 % (0-9) Eosinophils (%) (Auto) 2 % (0-3) Basophils (%) (Auto) 1 % (0-3) Neutrophils # (Auto) 1.5 x10^3uL (1.8-7.7) Lymphocytes # (Auto) 1.1 x10^3/uL (1.0-4.8) Monocytes # (Auto) 0.5 x10^3/uL (0.0-1.1) Eosinophils # (Auto) 0.1 x10^3/uL (0.0-0.7) Basophils # (Auto) 0.0 x10^3/uL (0.0-0.2) Sodium Level 140 mmol/L (136-145) Potassium Level 3.9 mmol/L (3.5-5.1) Chloride Level 103 mmol/L (98-107) Carbon Dioxide Level 28 mmol/L (21-32) Anion Gap 9 (6-14) Blood Urea Nitrogen 28 mg/dL (8-26) Creatinine 1.1 mg/dL (0.7-1.3) Estimated GFR (Cockcroft-Gault) 79.6 BUN/Creatinine Ratio 25 (6-20) Glucose Level 91 mg/dL (70-99) Calcium Level 9.4 mg/dL (8.5-10.1) Total Bilirubin 0.5 mg/dL (0.2-1.0) Aspartate Amino Transf (AST/SGOT) 20 U/L (15-37) Alanine Aminotransferase (ALT/SGPT) 20 U/L (16-63) Alkaline Phosphatase 44 U/L (46-116) Troponin I Quantitative < 0.017 ng/mL (0.000-0.055) BZ-Moi-D-Type Natriuretic Peptide 30 pg/mL (0-124) Total Protein 7.2 g/dL (6.4-8.2) Albumin 3.7 g/dL (3.4-5.0) Albumin/Globulin Ratio 1.1 (1.0-1.7) Prothrombin Time 14.5 SEC (11.7-14.0) Prothromb Time International Ratio 1.2 (0.8-1.1) VTE Prophylaxis Ordered VTE Prophylaxis Devices: Yes VTE Pharmacological Prophylaxi: Yes Assessment/Plan Assessment/Plan Neck pain 1 year, intermittent, persistent Chest pain History of gout Hypertension controlled [place], WBC 3.2 Plan: Admit, CT neck soft tissue cards consulted Home meds have been reconciled OBS SRAVANI BROTHERS MD Oct 28, 2017 18:11
[2017-10-28] MEDS ORDERED: CYCLOBENZAPRINE 10 MG TABLET. PO ONE (18:15)
[2017-10-28 19:00] VITALS: BP 142/106
[2017-10-28] MEDS: HYDROcodone/APAP 5/325MG 1 TAB TABLET PO SCH ×2 (20:35→21:55)
[2017-10-28] MEDS: CELECOXIB 100 MG CAPSULE. PO SCH (21:00)
[2017-10-28] MEDS ORDERED: SMZ/TMP 800/160MG TABLET. PO SCH (21:00)
[2017-10-28] MEDS: CYCLOBENZAPRINE 10 MG TABLET. PO SCH (21:00)
[2017-10-28] MEDS: MUPIROCIN 2 % TOPICAL CREAM 15GM TUBE. TP SCH (21:00)
[2017-10-28 23:00] VITALS: BP 103/63
[2017-10-29 02:47] VITALS: BP 117/62
[2017-10-29] MEDS ORDERED: IOHEXOL 300 MG/ML 100ML VIAL. IV ONE (06:30)
[2017-10-29] MEDS ORDERED: CONTRAST GIVEN. MC PRN (06:30)
[2017-10-29] MEDS: MORPHINE SULFATE 2 MG/ML VIAL. IV PRN (06:44)
[2017-10-29 07:00] VITALS: BP 126/68
[2017-10-29] MEDS ORDERED: predniSONE 20 MG TABLET PO SCH (09:00)
[2017-10-29] MEDS ORDERED: ASPIRIN CHEWABLE 81 MG TABLET. PO SCH (09:00)
[2017-10-29] MEDS ORDERED: ALLOPURINOL 300 MG TABLET. PO SCH (09:00)
[2017-10-29] MEDS: MUPIROCIN 2 % TOPICAL CREAM 15GM TUBE. TP SCH ×2 (09:00→14:00)
[2017-10-29] MEDS ORDERED: LOSARTAN POTASSIUM 50 MG TABLET. PO SCH (09:00)
[2017-10-29] MEDS: CYCLOBENZAPRINE 10 MG TABLET. PO SCH ×2 (09:13→15:02)
[2017-10-29] MEDS: CELECOXIB 100 MG CAPSULE. PO SCH (09:14)
--- NOTE | 2017-10-29 09:57 | PDOC2 ---
CARDIAC CONSULT DATE OF CONSULT Date of Consult DATE: 10/29/17 TIME: 919 REASON FOR CONSULT Reason for Consult: Chest pain REFERRING PHYSICIAN Referring Physician: Maryanne SOURCE Source: Chart review, Patient HISTORY OF PRESENT ILLNESS HISTORY OF PRESENT ILLNESS This is a pleasant 72 yo AA male admitted for complains of chest pain and neck pain. Reports no prior stress testing. He has neck issues from before and currently he has limited ROM to his neck with pain associated with mobility. No surgeries to his neck in the past and no prior MVA, falls or any recent injury or heavy lifting. However prior to this occurring, few days before, he was having midchest pressure and SOA with exertion and forced him to stop his yardwork. Denies any n/v or diaphoresis. Denies any neuropathic pain or paresthesia to his arms. No prior hx of CAD. He does not take any ASA, HTN nor HLP meds. He believed he had some form of MRI in from 3-4 months ago and possibly related to his spine. PAST MEDICAL HISTORY Cardiovascular: No pertinent hx Pulmonary: No pertinent hx CENTRAL NERVOUS SYSTEM: Dementia GI: Constipation Heme/Onc: No pertinent hx Hepatobiliary: No pertinent hx Psych: No pertinent hx Musculoskeletal: Osteoarthritis Rheumatologic: No pertinent hx Infectious disease: No pertinent hx ENT: No pertinent hx Renal/: Benign prostatic enlarg. Endocrine: No pertinent hx Dermatology: No pertinent hx PAST SURGICAL HISTORY Past Surgical History: No pertinent history FAMILY HISTORY Family History noncontributory to CV SOCIAL HISTORY Smoke: Quit (remote) ALCOHOL: none Drugs: None Lives: with Family CURRENT MEDICATIONS CURRENT MEDICATIONS Current Medications Medications (Trade) Dose Ordered Sig/Gera Route PRN Reason Start Time Stop Time Status Last Admin Dose Admin Aspirin (Alvaro Aspirin) 325 mg 1X ONCE PO 10/28/17 15:30 10/28/17 15:31 DC 10/28/17 17:36 Morphine Sulfate (Morphine Sulfate) 2 mg PRN Q2HR PRN IV PAIN SEVERE 10/28/17 16:00 10/29/17 06:44 Acetaminophen/ Hydrocodone Bitart (Lortab 5/325) 1 tab PRN Q4HRS PRN PO PAIN MODERATE 10/28/17 16:00 10/29/17 09:14 Acetaminophen/ Hydrocodone Bitart (Lortab 5/325) 1 tab TID PO 10/28/17 21:00 10/28/17 20:35 Cyclobenzaprine HCl (Flexeril) 10 mg TID PO 10/28/17 21:00 10/29/17 09:13 Cyclobenzaprine HCl (Flexeril) 10 mg 1X ONCE PO 10/28/17 18:15 10/28/17 18:22 DC 10/28/17 18:15 Celecoxib (CeleBREX) 100 mg BID PO 10/28/17 21:00 10/29/17 09:14 ALLERGIES ALLERGIES: Coded Allergies: No Known Drug Allergies (Unverified , 07/17/14) ROS Review of System 14 point ROS evaluated with pertinent positives noted per HPI PHYSICAL EXAM General: Alert, Oriented X3, Cooperative, No acute distress HEENT: Atraumatic, Mucous membr. moist/pink Lungs: Clear to auscultation, Normal air movement Heart: Regular rate (SR no significant ectopies), Normal S1, Normal S2, No murmurs Abdomen: Soft, No tenderness Extremities: No cyanosis, No edema Skin: No breakdown, No significant lesion Neuro: Normal speech, Sensation intact Psych/Mental Status: Mental status NL, Mood NL MUSCULOSKELETAL: Osteoarthritic changes both hands, Other (limited ROM to neck) VITALS VITALS Vital Signs Date Time Temp Pulse Resp B/P (MAP) Pulse Ox O2 Delivery O2 Flow Rate FiO2 10/29/17 09:14 Room Air 10/29/17 09:00 61 126/68 10/29/17 07:00 97.5 18 98 97.5 LABS Lab: Laboratory Tests Test 10/28/17 14:05 10/28/17 14:51 White Blood Count 3.2 x10^3/uL (4.0-11.0) Red Blood Count 4.70 x10^6/uL (4.30-5.70) Hemoglobin 14.1 g/dL (13.0-17.5) Hematocrit 40.8 % (39.0-53.0) Mean Corpuscular Volume 87 fL (79-100) Mean Corpuscular Hemoglobin 30 pg (25-35) Mean Corpuscular Hemoglobin Concent 34 g/dL (31-37) Red Cell Distribution Width 13.5 % (11.5-14.5) Platelet Count 164 x10^3/uL (140-400) Neutrophils (%) (Auto) 46 % (31-73) Lymphocytes (%) (Auto) 34 % (24-48) Monocytes (%) (Auto) 16 % (0-9) Eosinophils (%) (Auto) 2 % (0-3) Basophils (%) (Auto) 1 % (0-3) Neutrophils # (Auto) 1.5 x10^3uL (1.8-7.7) Lymphocytes # (Auto) 1.1 x10^3/uL (1.0-4.8) Monocytes # (Auto) 0.5 x10^3/uL (0.0-1.1) Eosinophils # (Auto) 0.1 x10^3/uL (0.0-0.7) Basophils # (Auto) 0.0 x10^3/uL (0.0-0.2) Sodium Level 140 mmol/L (136-145) Potassium Level 3.9 mmol/L (3.5-5.1) Chloride Level 103 mmol/L (98-107) Carbon Dioxide Level 28 mmol/L (21-32) Anion Gap 9 (6-14) Blood Urea Nitrogen 28 mg/dL (8-26) Creatinine 1.1 mg/dL (0.7-1.3) Estimated GFR (Cockcroft-Gault) 79.6 BUN/Creatinine Ratio 25 (6-20) Glucose Level 91 mg/dL (70-99) Calcium Level 9.4 mg/dL (8.5-10.1) Total Bilirubin 0.5 mg/dL (0.2-1.0) Aspartate Amino Transf (AST/SGOT) 20 U/L (15-37) Alanine Aminotransferase (ALT/SGPT) 20 U/L (16-63) Alkaline Phosphatase 44 U/L (46-116) Troponin I Quantitative < 0.017 ng/mL (0.000-0.055) JA-Svf-F-Type Natriuretic Peptide 30 pg/mL (0-124) Total Protein 7.2 g/dL (6.4-8.2) Albumin 3.7 g/dL (3.4-5.0) Albumin/Globulin Ratio 1.1 (1.0-1.7) Prothrombin Time 14.5 SEC (11.7-14.0) Prothromb Time International Ratio 1.2 (0.8-1.1) IMAGES IMAGES FINDINGS: There is cervical kyphosis centered at C4. There is mild anterolisthesis of C3 on C4, and to lesser extent, C2 on C3. There is degenerative endplate remodeling with disc space narrowing and Schmorl's node formation at C4 through the upper thoracic levels. There are multiple endplate Schmorl's nodes. There are few suspected osseous hemangiomas. No fracture is seen. No suspicious osseous lesion is seen. At C2-C3, there is a posterior central disc protrusion. There is no stenosis. At C3-C4, there is a minimal disc bulge. There is moderate right facet arthropathy. There is mild to moderate right foraminal stenosis. At C4-C5, there is a shallow left paracentral disc protrusion superimposed on a disc bulge and endplate remodeling. There is right uncovertebral arthropathy. There is moderate right and mild left foraminal stenosis. At C5-C6, there is a shallow posterior central to left paracentral disc protrusion superimposed on a disc bulge and endplate osteophytosis. There is bilateral uncovertebral arthropathy. There is moderate to severe right and severe left foraminal stenosis. There is mild central canal stenosis. At C6-C7, there is a disc bulge and endplate remodeling. There is bilateral uncovertebral arthropathy. There is mild bilateral foraminal stenosis. IMPRESSION: 1. Multilevel degenerative change within the cervical spine, resulting in stenosis as described above. 2. Mild cervical kyphosis and slight anterolisthesis at the upper cervical levels. DATE: 08/05/17 1326 ASSESSMENT/PLAN ASSESSMENT/PLAN 1. Chest pain: noted with typical features. initial trop nml. EKG SR, LATRELL no acute changes. 2. Neck pain with significant multilevel cervical stenosis 3. Dementia: on aricept Recommendations 1. MPI and TTE today. 2. Will need MRI if none done with possible consult to neurosurgery, defer to PCP 3. lipid panel, troponin KELLI MCMAHON FIELD ENGINEER Oct 29, 2017 09:57
[2017-10-29 11:00] VITALS: BP 97/62
[2017-10-29] MEDS ORDERED: REGADENOSON 0.4 MG/5 ML DISP.SYRIN. IV ONE (11:00)
--- NOTE | 2017-10-29 11:43 | PDOC ---
PROGRESS NOTES History of Present Illness History of Present Illness Assessment/Plan Assessment/Plan Neck pain 1 year, intermittent, persistent Chest pain History of gout Hypertension controlled [place], WBC 3.2 Plan: Admit, mri neck cards consulted consult dr roland Home meds have been reconciled OBS Vitals Vitals Vital Signs Date Time Temp Pulse Resp B/P (MAP) Pulse Ox O2 Delivery O2 Flow Rate FiO2 10/29/17 10:46 Room Air 10/29/17 09:00 61 126/68 10/29/17 07:00 97.5 18 98 97.5 Physical Exam General: Alert, Oriented X3, Cooperative, No acute distress, moderate distress Heart: Regular rate (SR no significant ectopies), Normal S1, Normal S2, No murmurs Lungs: Clear Abdomen: Normal bowel sounds, Soft, No tenderness Extremities: No cyanosis, No edema Skin: No breakdown, No significant lesion Labs LABS IMAGES FINDINGS: There is cervical kyphosis centered at C4. There is mild anterolisthesis of C3 on C4, and to lesser extent, C2 on C3. There is degenerative endplate remodeling with disc space narrowing and Schmorl's node formation at C4 through the upper thoracic levels. There are multiple endplate Schmorl's nodes. There are few suspected osseous hemangiomas. No fracture is seen. No suspicious osseous lesion is seen. At C2-C3, there is a posterior central disc protrusion. There is no stenosis. At C3-C4, there is a minimal disc bulge. There is moderate right facet arthropathy. There is mild to moderate right foraminal stenosis. At C4-C5, there is a shallow left paracentral disc protrusion superimposed on a disc bulge and endplate remodeling. There is right uncovertebral arthropathy. There is moderate right and mild left foraminal stenosis. At C5-C6, there is a shallow posterior central to left paracentral disc protrusion superimposed on a disc bulge and endplate osteophytosis. There is bilateral uncovertebral arthropathy. There is moderate to severe right and severe left foraminal stenosis. There is mild central canal stenosis. At C6-C7, there is a disc bulge and endplate remodeling. There is bilateral uncovertebral arthropathy. There is mild bilateral foraminal stenosis. IMPRESSION: 1. Multilevel degenerative change within the cervical spine, resulting in stenosis as described above. 2. Mild cervical kyphosis and slight anterolisthesis at the upper cervical levels. Laboratory Tests Test 10/28/17 14:05 10/28/17 14:51 10/29/17 08:45 White Blood Count 3.2 x10^3/uL (4.0-11.0) Red Blood Count 4.70 x10^6/uL (4.30-5.70) Hemoglobin 14.1 g/dL (13.0-17.5) Hematocrit 40.8 % (39.0-53.0) Mean Corpuscular Volume 87 fL (79-100) Mean Corpuscular Hemoglobin 30 pg (25-35) Mean Corpuscular Hemoglobin Concent 34 g/dL (31-37) Red Cell Distribution Width 13.5 % (11.5-14.5) Platelet Count 164 x10^3/uL (140-400) Neutrophils (%) (Auto) 46 % (31-73) Lymphocytes (%) (Auto) 34 % (24-48) Monocytes (%) (Auto) 16 % (0-9) Eosinophils (%) (Auto) 2 % (0-3) Basophils (%) (Auto) 1 % (0-3) Neutrophils # (Auto) 1.5 x10^3uL (1.8-7.7) Lymphocytes # (Auto) 1.1 x10^3/uL (1.0-4.8) Monocytes # (Auto) 0.5 x10^3/uL (0.0-1.1) Eosinophils # (Auto) 0.1 x10^3/uL (0.0-0.7) Basophils # (Auto) 0.0 x10^3/uL (0.0-0.2) Sodium Level 140 mmol/L (136-145) Potassium Level 3.9 mmol/L (3.5-5.1) Chloride Level 103 mmol/L (98-107) Carbon Dioxide Level 28 mmol/L (21-32) Anion Gap 9 (6-14) Blood Urea Nitrogen 28 mg/dL (8-26) Creatinine 1.1 mg/dL (0.7-1.3) Estimated GFR (Cockcroft-Gault) 79.6 BUN/Creatinine Ratio 25 (6-20) Glucose Level 91 mg/dL (70-99) Calcium Level 9.4 mg/dL (8.5-10.1) Total Bilirubin 0.5 mg/dL (0.2-1.0) Aspartate Amino Transf (AST/SGOT) 20 U/L (15-37) Alanine Aminotransferase (ALT/SGPT) 20 U/L (16-63) Alkaline Phosphatase 44 U/L (46-116) Troponin I Quantitative < 0.017 ng/mL (0.000-0.055) < 0.017 ng/mL (0.000-0.055) SX-Znf-X-Type Natriuretic Peptide 30 pg/mL (0-124) Total Protein 7.2 g/dL (6.4-8.2) Albumin 3.7 g/dL (3.4-5.0) Albumin/Globulin Ratio 1.1 (1.0-1.7) Prothrombin Time 14.5 SEC (11.7-14.0) Prothromb Time International Ratio 1.2 (0.8-1.1) Triglycerides Level 83 mg/dL (0-150) Cholesterol Level 182 mg/dL (0-200) LDL Cholesterol, Calculated 104 mg/dL (0-100) VLDL Cholesterol, Calculated 17 mg/dL (0-40) Non-HDL Cholesterol Calculated 121 mg/dL (0-129) HDL Cholesterol 61 mg/dL (40-60) Cholesterol/HDL Ratio 3.0 Comment Review of Relevant I have reviewed the following items dmitry (where applicable) has been applied. Labs Laboratory Tests Test 10/28/17 14:05 10/28/17 14:51 10/29/17 08:45 White Blood Count 3.2 x10^3/uL (4.0-11.0) Red Blood Count 4.70 x10^6/uL (4.30-5.70) Hemoglobin 14.1 g/dL (13.0-17.5) Hematocrit 40.8 % (39.0-53.0) Mean Corpuscular Volume 87 fL (79-100) Mean Corpuscular Hemoglobin 30 pg (25-35) Mean Corpuscular Hemoglobin Concent 34 g/dL (31-37) Red Cell Distribution Width 13.5 % (11.5-14.5) Platelet Count 164 x10^3/uL (140-400) Neutrophils (%) (Auto) 46 % (31-73) Lymphocytes (%) (Auto) 34 % (24-48) Monocytes (%) (Auto) 16 % (0-9) Eosinophils (%) (Auto) 2 % (0-3) Basophils (%) (Auto) 1 % (0-3) Neutrophils # (Auto) 1.5 x10^3uL (1.8-7.7) Lymphocytes # (Auto) 1.1 x10^3/uL (1.0-4.8) Monocytes # (Auto) 0.5 x10^3/uL (0.0-1.1) Eosinophils # (Auto) 0.1 x10^3/uL (0.0-0.7) Basophils # (Auto) 0.0 x10^3/uL (0.0-0.2) Sodium Level 140 mmol/L (136-145) Potassium Level 3.9 mmol/L (3.5-5.1) Chloride Level 103 mmol/L (98-107) Carbon Dioxide Level 28 mmol/L (21-32) Anion Gap 9 (6-14) Blood Urea Nitrogen 28 mg/dL (8-26) Creatinine 1.1 mg/dL (0.7-1.3) Estimated GFR (Cockcroft-Gault) 79.6 BUN/Creatinine Ratio 25 (6-20) Glucose Level 91 mg/dL (70-99) Calcium Level 9.4 mg/dL (8.5-10.1) Total Bilirubin 0.5 mg/dL (0.2-1.0) Aspartate Amino Transf (AST/SGOT) 20 U/L (15-37) Alanine Aminotransferase (ALT/SGPT) 20 U/L (16-63) Alkaline Phosphatase 44 U/L (46-116) Troponin I Quantitative < 0.017 ng/mL (0.000-0.055) < 0.017 ng/mL (0.000-0.055) DQ-Nyq-C-Type Natriuretic Peptide 30 pg/mL (0-124) Total Protein 7.2 g/dL (6.4-8.2) Albumin 3.7 g/dL (3.4-5.0) Albumin/Globulin Ratio 1.1 (1.0-1.7) Prothrombin Time 14.5 SEC (11.7-14.0) Prothromb Time International Ratio 1.2 (0.8-1.1) Triglycerides Level 83 mg/dL (0-150) Cholesterol Level 182 mg/dL (0-200) LDL Cholesterol, Calculated 104 mg/dL (0-100) VLDL Cholesterol, Calculated 17 mg/dL (0-40) Non-HDL Cholesterol Calculated 121 mg/dL (0-129) HDL Cholesterol 61 mg/dL (40-60) Cholesterol/HDL Ratio 3.0 Laboratory Tests Test 10/28/17 14:05 10/28/17 14:51 10/29/17 08:45 White Blood Count 3.2 x10^3/uL (4.0-11.0) Red Blood Count 4.70 x10^6/uL (4.30-5.70) Hemoglobin 14.1 g/dL (13.0-17.5) Hematocrit 40.8 % (39.0-53.0) Mean Corpuscular Volume 87 fL (79-100) Mean Corpuscular Hemoglobin 30 pg (25-35) Mean Corpuscular Hemoglobin Concent 34 g/dL (31-37) Red Cell Distribution Width 13.5 % (11.5-14.5) Platelet Count 164 x10^3/uL (140-400) Neutrophils (%) (Auto) 46 % (31-73) Lymphocytes (%) (Auto) 34 % (24-48) Monocytes (%) (Auto) 16 % (0-9) Eosinophils (%) (Auto) 2 % (0-3) Basophils (%) (Auto) 1 % (0-3) Neutrophils # (Auto) 1.5 x10^3uL (1.8-7.7) Lymphocytes # (Auto) 1.1 x10^3/uL (1.0-4.8) Monocytes # (Auto) 0.5 x10^3/uL (0.0-1.1) Eosinophils # (Auto) 0.1 x10^3/uL (0.0-0.7) Basophils # (Auto) 0.0 x10^3/uL (0.0-0.2) Sodium Level 140 mmol/L (136-145) Potassium Level 3.9 mmol/L (3.5-5.1) Chloride Level 103 mmol/L (98-107) Carbon Dioxide Level 28 mmol/L (21-32) Anion Gap 9 (6-14) Blood Urea Nitrogen 28 mg/dL (8-26) Creatinine 1.1 mg/dL (0.7-1.3) Estimated GFR (Cockcroft-Gault) 79.6 BUN/Creatinine Ratio 25 (6-20) Glucose Level 91 mg/dL (70-99) Calcium Level 9.4 mg/dL (8.5-10.1) Total Bilirubin 0.5 mg/dL (0.2-1.0) Aspartate Amino Transf (AST/SGOT) 20 U/L (15-37) Alanine Aminotransferase (ALT/SGPT) 20 U/L (16-63) Alkaline Phosphatase 44 U/L (46-116) Troponin I Quantitative < 0.017 ng/mL (0.000-0.055) < 0.017 ng/mL (0.000-0.055) NN-Tuy-Q-Type Natriuretic Peptide 30 pg/mL (0-124) Total Protein 7.2 g/dL (6.4-8.2) Albumin 3.7 g/dL (3.4-5.0) Albumin/Globulin Ratio 1.1 (1.0-1.7) Prothrombin Time 14.5 SEC (11.7-14.0) Prothromb Time International Ratio 1.2 (0.8-1.1) Triglycerides Level 83 mg/dL (0-150) Cholesterol Level 182 mg/dL (0-200) LDL Cholesterol, Calculated 104 mg/dL (0-100) VLDL Cholesterol, Calculated 17 mg/dL (0-40) Non-HDL Cholesterol Calculated 121 mg/dL (0-129) HDL Cholesterol 61 mg/dL (40-60) Cholesterol/HDL Ratio 3.0 Medications Current Medications Aspirin (Alvaro Aspirin) 325 mg 1X ONCE PO Last administered on 10/28/17at 17:36 ; Start 10/28/17 at 15:30; Stop 10/28/17 at 15:31; Status DC Ondansetron HCl (Zofran) 4 mg PRN Q6HRS PRN IV NAUSEA/VOMITING; Start 10/28/17 at 16:00 Ondansetron HCl (Zofran Odt) 4 mg PRN Q6HRS PRN PO NAUSEA/VOMITING; Start 10/28 at 16:00 Acetaminophen (Tylenol) 500 mg PRN Q6HRS PRN PO MILD PAIN / TEMP; Start at 16:00 Acetaminophen/ Codeine Phosphate (Tylenol #3) 1 tab PRN Q6HRS PRN PO PAIN MILD ; Start 10/28/17 at 16:00 Morphine Sulfate (Morphine Sulfate) 2 mg PRN Q2HR PRN IV PAIN SEVERE Last administered on 10/29/17at 06:44; Start 10/28/17 at 16:00 Acetaminophen/ Hydrocodone Bitart (Lortab 5/325) 1 tab PRN Q4HRS PRN PO PAIN MODERATE Last administered on 10/29/17at 09:14; Start 10/28/17 at 16:00 Temazepam (Restoril) 7.5 mg PRN QHS PRN PO INSOMNIA; Start 10/28/17 at 16:00 Allopurinol (Zyloprim) 300 mg DAILY PO ; Start 10/29/17 at 09:00 Aspirin (Children'S Aspirin) 81 mg DAILY PO ; Start 10/29/17 at 09:00 Cephalexin HCl (Keflex) 250 mg QID PO ; Start 10/28/17 at 17:00; Stop 10/28/17 at 18:05; Status DC Acetaminophen/ Hydrocodone Bitart (Lortab 5/325) 1 tab TID PO Last administered on 10/28/17at 20:35; Start 10/28/17 at 21:00 Mupirocin (Bactroban) 1 angle TID TP ; Start 10/28/17 at 21:00 Prednisone (Prednisone) 40 mg DAILY PO ; Start 10/29/17 at 09:00 Trimethoprim/ Sulfamethoxazole (Bactrim Ds) 1 tab BID PO ; Start 10/28/17 at 21: 00; Stop 10/28/17 at 21:00; Status DC Losartan Potassium (Cozaar) 100 mg DAILY PO ; Start 10/29/17 at 09:00 Cyclobenzaprine HCl (Flexeril) 10 mg TID PO Last administered on 10/29/17at 09: 13; Start 10/28/17 at 21:00 Cyclobenzaprine HCl (Flexeril) 10 mg 1X ONCE PO Last administered on at 18:15; Start 10/28/17 at 18:15; Stop 10/28/17 at 18:22; Status DC Celecoxib (CeleBREX) 100 mg BID PO Last administered on 10/29/17at 09:14; Start 10/28/17 at 21:00 Iohexol (Omnipaque 300 Mg/ml) 75 ml 1X ONCE IV Last administered on 10/29/17at 10:10; Start 10/29/17 at 06:30; Stop 10/29/17 at 06:31; Status DC Info (CONTRAST GIVEN -- Rx MONITORING) 1 each PRN DAILY PRN MC SEE COMMENTS; Start 10/29/17 at 06:30; Stop 10/31/17 at 06:29 Regadenoson (Lexiscan) 0.4 mg 1X ONCE IV ; Start 10/29/17 at 11:00; Stop at 11:01; Status DC Active Scripts Active [place] 5-325 Tablet (Acetaminophen/Hydrocodone Bitart) 1 Each Tablet 1 Tab PO BID 4 Days Prednisone 20 Mg Tablet 2 Tab PO DAILY 5 Days Keflex (Cephalexin) 250 Mg Capsule 1 Cap PO QID [place] 5-325 Tablet (Acetaminophen/Hydrocodone Bitart) 1 Each Tablet 1 Tab PO PRN Q6HRS PRN [place] 5-325 Tablet (Acetaminophen/Hydrocodone Bitart) 1 Each Tablet 1-2 Tab PO Q4-6HRS Bactroban Cream (Mupirocin) 15 Gm Cream..g. 1 Angle TP TID Bactrim Ds Tablet (Sulfamethoxazole/Trimethoprim) 1 Each Tablet 1 Tab PO BID Reported [Pain Med] Aspirin 81 Mg Tab.chew 81 Mg PO DAILY Allopurinol 300 Mg Tablet 300 Mg PO Losartan Potassium 100 Mg Tablet 100 Mg PO Vitals/I & O Vital Sign - Last 24 Hours 10/28/17 10/28/17 10/28/17 10/28/17 14:05 15:00 16:00 17:00 Temp 98.2 98.2 Pulse 77 62 68 68 Resp 18 18 18 B/P (MAP) 124/70 (88) 122/64 (83) 123/71 (88) 133/69 (90) Pulse Ox 98 99 99 99 O2 Delivery Room Air Room Air Room Air Room Air 10/28/17 10/28/17 10/28/17 10/28/17 17:36 18:40 19:00 20:00 Temp 98.3 98.3 Pulse 80 Resp 18 17 B/P (MAP) 142/106 (118) Pulse Ox 98 97 O2 Delivery Room Air Room Air Room Air Room Air 10/28/17 10/28/17 10/28/17 10/29/17 20:35 23:00 23:21 02:47 Temp 98.1 98.1 98.1 98.1 Pulse 67 58 Resp 16 16 B/P (MAP) 103/63 (76) 117/62 (80) Pulse Ox 98 97 97 100 O2 Delivery Room Air Room Air Room Air Room Air 10/29/17 10/29/17 10/29/17 10/29/17 06:44 07:00 07:41 09:00 Temp 97.5 97.5 Pulse 61 61 Resp 18 B/P (MAP) 126/68 (87) 126/68 Pulse Ox 100 98 O2 Delivery Room Air Room Air Room Air 10/29/17 10/29/17 09:14 10:46 O2 Delivery Room Air Room Air Intake and Output 10/28/17 10/28/17 10/29/17 15:00 23:00 07:00 Output Total 0 ml Balance 0 ml KIM BROOKS MD Oct 29, 2017 11:43
--- NOTE | 2017-10-29 12:24 | RAD ---
CT SOFT TISSUE NECK W/CONTRAST Indication: UNABLE TO MOVE NECK SIDE TO SIDE INJ 75ML OMNI 300 PREV C SPINE WITHOUT Exposure: One or more of the following individualized dose reduction techniques were utilized for this examination: 1. Automated exposure control 2. Adjustment of the mA and/or kV according to patient size 3. Use of iterative reconstruction technique. Comparison: None are available. Contrast: Intravenous FINDINGS: Visualized sinuses: Clear Visualized orbits: Unremarkable Vessels: Unremarkable Parotid glands: Unremarkable Submandibular glands: Unremarkable Pharynx/larynx: Patent and midline Tonsils: No appreciable enlargement. Parapharyngeal tissues: Symmetric and unremarkable Lymph nodes: No pathologic enlargement Thyroid: Small low-density lesion at the right lobe, measures about 6 mm. Upper thorax: Tiny left upper lobe subpleural nodule only measures 2 mm diameter, axial series 2, image 25. Soft tissues: Unremarkable Mandible/maxilla: Unremarkable Cervical spine: Degenerative spondylosis with cervical stenosis. IMPRESSION: 1. No acute findings. 2. Small 6 mm right thyroid nodule. 3. Tiny subpleural nodule left upper lobe, measures 2 mm. Significance questionable, no follow-up necessary per Fleischner Society guidelines if patient is low risk. CT chest follow-up in 12 months could be considered if high risk, as per Fleischner Society guidelines. Electronically signed by: Andre Lew MD (10/29/2017 12:20 PM) [facility]
--- NOTE | 2017-10-29 14:15 | RAD ---
MR#: [id number] Date of Study: 10/29/2017 Ordering Physician: KELLI MCMAHON, Referring Physician: JOSE SHEPHERD Tech: RT Gloria Bingham) (N) APPROVED REPORT Test Type: Pharmacological Stress Nurse/Tech: Lilian Canela R.N. Test Indications: c/p Cardiac History: No known cardiac Medications: See Electronic Medical Record Medical History: See Electronic Medical Record Resting ECG: SR Resting Heart Rate: 60 bpm Resting Blood Pressure: 123/81mmHg Pretest Chest Pain: No chest pain Nurse/Tech Notes S1S2, lungs CTA Consent: The procedure was explained to the patient in lay terms. Informed consent was witnessed. Jun eout was entered into [employer]. History and Stress Test performed by RT Gloria Bingham) (N) Pharm. Details Pharmacologic stress testing was performed using 0.4mg per 5ml of regadenoson given intravenously ove r 7-10 seconds. Stress Symptoms SOB POST EXERCISE Reason for Termination: Infusion complete Max HR: 90 bpm Max Blood Pressure: 122/65mmHg Blood Pressure response to exercise: Normal blood pressure response during stress. Heart Rate response to exercise: wnl Chest Pain: No. Arrhythmia: Yes. had some noted pvc's towards the end of recovery period ST Change: No. no changes from above noted abnormal baseline INTERPRETATION Stress EKG Conclusion: Baseline EKG showed sinus rhythm. No ischemic changes at peak stress. No arr hythmias. Imaging Protocol IMAGE PROTOCOL: Rest Tc-99m/stress Tc-99m 1 day Rest: Stress: Viability: Radiopharm.Tc99m PmqivlcakVw43t Sestamibi Dose10.1mCi 34.8mCi Duration 13min. 13min. Img Date 10/29/2017 10/29/2017 Inj-Img Klof26cwc. 60min. Rest Admin Site:IV - Left AntecubitalAdministrator:RT Gloria Bingham)(N) Stress Admin Site: IV - Left AntecubitalAdministrator: SHAMAR Guerrero STRESS DATA End Diast. Vol.79.0mlLVEDV index BSA41.0ml End Syst. Vol.39.0mlLVESV index BSA21.0ml Myocardial Aqpn025.0gEject. Mhrlchax41.0% Stress Scores Regional WT2.00Summed WT10.00 Regional WM0.00Summed WM17.00 Study quality was good. Left Ventricular size was Normal at Rest and Stress. Lung uptake was Normal. Left Ventricular ejection fraction is 51%. The rest and stress images show normal perfusion, normal contraction and thickening. LV Perf. Quant 17 Seg. SSS2.00 17 Seg. SRS3.00 17 Seg. SDS0.00 Stress Defect Extent (% LAD)6.30Rest Defect Extent (% LAD)5.00Rev. Defect Extent (% LAD)0.00 Stress Defect Extent (% LCX) 0.00Rest Defect Extent (% LCX)0.00Rev. Defect Extent (% LCX)0.00 Stress Defect Extent (% RCA)0.00Rest Defect Extent (% RCA)0.00Rev. Defect Extent (% RCA)0.00 Stress Defect Extent (% ANGELES)2.20Rest Defect Extent (% ANGELES)1.70Rev. Defect Extent (% ANGELES)0.00 Conclusion 1. Regadenoson cardioisotope stress test did not show any evidence of ischemia or infarct. 2. Normal left ventricular systolic function with ejection fraction calculated at 51%. 3. Low risk for cardiac events. Signed by : Anthony Shah, Electronically Approved : 10/29/2017 14:14:29
--- NOTE | 2017-10-29 15:01 | RAD ---
EXAMINATION: Magnetic resonance imaging (MRI) of the cervical spine without contrast 10/29/2017 12:03 PM HISTORY: Cervical stenosis and neck pain. TECHNIQUE: Multiplanar multi-weighted MRI of the cervical spine was performed without intravenous contrast using the standard cervical spine protocol. Contrast information: None administered COMPARISON: None available. FINDINGS: There is minimal anterolisthesis of C3 on C4. Vertebral bodies demonstrate normal signal intensity on all sequences. No acute fracture is identified; however, if trauma is suspected, a CT scan would be a more sensitive examination for fractures. The craniocervical junction is normal. The visualized portions of the skull base and the posterior fossa are normal. The spinal cord demonstrates normal signal intensity on all sequences. There is mild disc height loss at C4-C5 and moderate disc height loss at C5-C6, C6-C7 and C7-T1. Endplate remodeling is noted at these levels. No soft tissue abnormality is identified. Normal signal voids are present in the vertebral arteries. C2-C3: There is mild disc bulge. There is mild facet arthropathy. There is no uncovertebral joint disease. There is no neuroforaminal stenosis. There is no spinal canal stenosis. C3-C4: There is a circumferential disc bulge. There is moderate to advanced right and moderate left facet arthropathy. There is mild uncovertebral joint disease. There is moderate right neuroforaminal stenosis. There is no spinal canal stenosis. C4-C5: There is a posterior disc osteophyte complex with right central disc protrusion. There is moderate facet arthropathy. There is mild uncovertebral joint disease. There is mild bilateral neuroforaminal stenosis. There is mild spinal canal stenosis. There is no deformity of the cord. C5-C6: There is a posterior disc osteophyte complex. There is moderate facet arthropathy. There is moderate uncovertebral joint disease. There is moderate neuroforaminal stenosis. There is mild spinal canal stenosis without deformity of the cord. C6-C7: There is a posterior disc osteophyte complex. There is moderate facet arthropathy. There is moderate uncovertebral joint disease. There is mild to moderate bilateral neuroforaminal stenosis. There is mild spinal canal stenosis. C7-T1: There is a posterior disc osteophyte complex with left central disc extrusion. There is moderate facet arthropathy. There is advanced uncovertebral joint disease. There is moderate left and mild right neuroforaminal stenosis. There is mild spinal canal stenosis. IMPRESSION: Mild to moderate degenerative changes of the cervical spine as described in detail above. Electronically signed by: Sloane Camp MD (10/29/2017 2:57 PM) [facility]
[2017-10-29] MEDS: HYDROcodone/APAP 5/325MG 1 TAB TABLET PO SCH (15:02)
--- NOTE | 2017-10-29 15:02 | CARD ---
MR#: [id number] Date of Study: 10/29/2017 Ordering Physician: KELLI MCMAHON, Referring Physician: SRAVANI BROTHERS, Tech: Alexandra Velazquez APPROVED REPORT EXAM: Two-dimensional and M-mode echocardiogram with Doppler and color Doppler. Other Information Quality : GoodHR: 61bpm INDICATION Chest Pain 2D DIMENSIONS RVDd2.6 (2.9-3.5cm)Left Atrium(2D)3.0 (1.6-4.0cm) IVSd1.0 (0.7-1.1cm)Aortic Root(2D)3.0 (2.0-3.7cm) LVDd4.1 (3.9-5.9cm)LVOT Diameter2.0 (1.8-2.4cm) PWd1.2 (0.7-1.1cm)LVDs2.6 (2.5-4.0cm) FS (%) 36.0 %SV48.6 ml Aortic Valve AoV Peak Karlo.114.3cm/sAoV VTI21.1cm AO Peak GR.5.2mmHgLVOT Peak Karlo.76.0cm/s AO Mean GR.3mmHgAVA (VMAX)2.06cm2 Mitral Valve MV E Usixzwgd53.6cm/sMV DECEL TUXL425rp MV A Nixniyru90.3cm/sE/A Ratio0.8 Tricuspid Valve TR P. Ljyrfocj129os/sRAP JDVLEFOJ6hfCl TR Peak Gr.45izXcTBUP82trCq Pulmonary Vein S1 Ibaobmox98.3cm/sD2 Jphomhnu72.3cm/s PVa dtjrlljw261ador LEFT VENTRICLE The left ventricle is normal size. There is normal left ventricular wall thickness. The left ventricu lar systolic function is normal and the ejection fraction is within normal range. The Ejection Fracti on is 55-60%. There is normal LV segmental wall motion. Transmitral Doppler flow pattern is Grade I-a bnormal relaxation pattern. RIGHT VENTRICLE The right ventricle is normal size. There is normal right ventricular wall thickness. The right ventr icular systolic function is normal. ATRIA The left atrium size is normal. The right atrium size is normal. The interatrial septum is intact wit h no evidence for an atrial septal defect or patent foramen ovale as noted on 2-D or Doppler imaging. AORTIC VALVE The aortic valve is calcified but opens well. Doppler and Color Flow revealed trace aortic regurgitat ion. There is no significant aortic valvular stenosis. MITRAL VALVE The mitral valve is normal in structure and function. Mitral annular calcification is mild. There is no mitral valve stenosis. Doppler and Color Flow revealed no mitral valve regurgitation noted. TRICUSPID VALVE The tricuspid valve is normal in structure and function. Doppler and Color Flow revealed trace tricus pid regurgitation. PULMONIC VALVE The pulmonary valve is normal in structure and function. Doppler and Color Flow revealed no pulmonic valvular regurgitation. GREAT VESSELS The aortic root is normal in size. The IVC is normal in size and collapses >50% with inspiration. PERICARDIAL EFFUSION There is no evidence of significant pericardial effusion. Critical Notification Critical Value: No <Conclusion> The left ventricle is normal size. The left ventricular systolic function is normal and the ejection fraction is within normal range. The Ejection Fraction is 55-60%. There is no significant aortic valvular stenosis. Doppler and Color Flow revealed trace aortic regurgitation. Doppler and Color Flow revealed no mitral valve regurgitation noted. Doppler and Color Flow revealed trace tricuspid regurgitation. Signed by : Kevin White MD Electronically Approved : 10/29/2017 15:00:44
--- NOTE | 2017-10-29 16:24 | PDOC3 ---
Discharge Summary Date of Admission: Oct 28, 2017 Date of Discharge: Oct 29, 2017 Follow-Up: 3-5 days Admitting Diagnosis comment: ssessment/Plan Assessment/Plan Neck pain 1 year, intermittent, persistent Chest pain History of gout Hypertension controlled [place], WBC 3.2 Plan: Admit, mri neck cards consulted consult dr roland Home meds have been reconciled OBS Vitals Vitals Vital Signs Date Time Temp Pulse Resp B/P (MAP) Pulse Ox O2 Delivery O2 Flow Rate FiO2 10/29/17 10:46 Room Air 10/29/17 09:00 61 126/68 10/29/17 07:00 97.5 18 98 97.5 Physical Exam General: Alert, Oriented X3, Cooperative, No acute distress, moderate distress Heart: Regular rate (SR no significant ectopies), Normal S1, Normal S2, No murmurs Lungs: Clear Abdomen: Normal bowel sounds, Soft, No tenderness Extremities: No cyanosis, No edema Skin: No breakdown, No significant lesion Labs LABS IMAGES FINDINGS: There is cervical kyphosis centered at C4. There is mild anterolisthesis of C3 on C4, and to lesser extent, C2 on C3. There is degenerative endplate remodeling with disc space narrowing and Schmorl's node formation at C4 through the upper thoracic levels. There are multiple endplate Schmorl's nodes. There are few suspected osseous hemangiomas. No fracture is seen. No suspicious osseous lesion is seen. At C2-C3, there is a posterior central disc protrusion. There is no stenosis. At C3-C4, there is a minimal disc bulge. There is moderate right facet arthropathy. There is mild to moderate right foraminal stenosis. At C4-C5, there is a shallow left paracentral disc protrusion superimposed on a disc bulge and endplate remodeling. There is right uncovertebral arthropathy. There is moderate right and mild left foraminal stenosis. At C5-C6, there is a shallow posterior central to left paracentral disc protrusion superimposed on a disc bulge and endplate osteophytosis. There is bilateral uncovertebral arthropathy. There is moderate to severe right and severe left foraminal stenosis. There is mild central canal stenosis. At C6-C7, there is a disc bulge and endplate remodeling. There is bilateral uncovertebral arthropathy. There is mild bilateral foraminal stenosis. IMPRESSION: 1. Multilevel degenerative change within the cervical spine, resulting in stenosis as described above. 2. Mild cervical kyphosis and slight anterolisthesis at the upper cervical Brief Hospital Course Mr. Guido is a 72 old [sex] who presented with [ NECK AND CHEST PAIN] CONDITION AT DISCHARGE: Improved Discharge Medications Current Medications Aspirin (Alvaro Aspirin) 325 mg 1X ONCE PO Last administered on 10/28/17at 17:36 ; Start 10/28/17 at 15:30; Stop 10/28/17 at 15:31; Status DC Ondansetron HCl (Zofran) 4 mg PRN Q6HRS PRN IV NAUSEA/VOMITING; Start 10/28/17 at 16:00 Ondansetron HCl (Zofran Odt) 4 mg PRN Q6HRS PRN PO NAUSEA/VOMITING; Start 10/28 at 16:00 Acetaminophen (Tylenol) 500 mg PRN Q6HRS PRN PO MILD PAIN / TEMP; Start at 16:00 Acetaminophen/ Codeine Phosphate (Tylenol #3) 1 tab PRN Q6HRS PRN PO PAIN MILD ; Start 10/28/17 at 16:00 Morphine Sulfate (Morphine Sulfate) 2 mg PRN Q2HR PRN IV PAIN SEVERE Last administered on 10/29/17at 06:44; Start 10/28/17 at 16:00 Acetaminophen/ Hydrocodone Bitart (Lortab 5/325) 1 tab PRN Q4HRS PRN PO PAIN MODERATE Last administered on 10/29/17at 09:14; Start 10/28/17 at 16:00 Temazepam (Restoril) 7.5 mg PRN QHS PRN PO INSOMNIA; Start 10/28/17 at 16:00 Allopurinol (Zyloprim) 300 mg DAILY PO ; Start 10/29/17 at 09:00 Aspirin (Children'S Aspirin) 81 mg DAILY PO ; Start 10/29/17 at 09:00 Cephalexin HCl (Keflex) 250 mg QID PO ; Start 10/28/17 at 17:00; Stop 10/28/17 at 18:05; Status DC Acetaminophen/ Hydrocodone Bitart (Lortab 5/325) 1 tab TID PO Last administered on 10/29/17at 15:02; Start 10/28/17 at 21:00 Mupirocin (Bactroban) 1 angle TID TP Last administered on 10/29/17at 14:00; Start 10/28/17 at 21:00 Prednisone (Prednisone) 40 mg DAILY PO ; Start 10/29/17 at 09:00 Trimethoprim/ Sulfamethoxazole (Bactrim Ds) 1 tab BID PO ; Start 10/28/17 at 21: 00; Stop 10/28/17 at 21:00; Status DC Losartan Potassium (Cozaar) 100 mg DAILY PO ; Start 10/29/17 at 09:00 Cyclobenzaprine HCl (Flexeril) 10 mg TID PO Last administered on 10/29/17at 15: 02; Start 10/28/17 at 21:00 Cyclobenzaprine HCl (Flexeril) 10 mg 1X ONCE PO Last administered on at 18:15; Start 10/28/17 at 18:15; Stop 10/28/17 at 18:22; Status DC Celecoxib (CeleBREX) 100 mg BID PO Last administered on 10/29/17at 09:14; Start 10/28/17 at 21:00 Iohexol (Omnipaque 300 Mg/ml) 75 ml 1X ONCE IV Last administered on 10/29/17at 10:10; Start 10/29/17 at 06:30; Stop 10/29/17 at 06:31; Status DC Info (CONTRAST GIVEN -- Rx MONITORING) 1 each PRN DAILY PRN MC SEE COMMENTS; Start 10/29/17 at 06:30; Stop 10/31/17 at 06:29 Regadenoson (Lexiscan) 0.4 mg 1X ONCE IV Last administered on 10/29/17at 11:56 ; Start 10/29/17 at 11:00; Stop 10/29/17 at 11:01; Status DC Active Scripts Active [place] 5-325 Tablet (Acetaminophen/Hydrocodone Bitart) 1 Each Tablet 1 Tab PO BID 4 Days Prednisone 20 Mg Tablet 2 Tab PO DAILY 5 Days Keflex (Cephalexin) 250 Mg Capsule 1 Cap PO QID [place] 5-325 Tablet (Acetaminophen/Hydrocodone Bitart) 1 Each Tablet 1 Tab PO PRN Q6HRS PRN [place] 5-325 Tablet (Acetaminophen/Hydrocodone Bitart) 1 Each Tablet 1-2 Tab PO Q4-6HRS Bactroban Cream (Mupirocin) 15 Gm Cream..g. 1 Angle TP TID Bactrim Ds Tablet (Sulfamethoxazole/Trimethoprim) 1 Each Tablet 1 Tab PO BID Reported [Pain Med] Aspirin 81 Mg Tab.chew 81 Mg PO DAILY Allopurinol 300 Mg Tablet 300 Mg PO Losartan Potassium 100 Mg Tablet 100 Mg PO Vital Signs Vital Signs Date Time Temp Pulse Resp B/P (MAP) Pulse Ox O2 Delivery O2 Flow Rate FiO2 10/29/17 15:02 Room Air 10/29/17 11:00 95.7 65 16 97/62 (74) 99 95.7 Labs Laboratory Tests Test 10/28/17 14:05 10/28/17 14:51 10/29/17 08:45 White Blood Count 3.2 x10^3/uL (4.0-11.0) Red Blood Count 4.70 x10^6/uL (4.30-5.70) Hemoglobin 14.1 g/dL (13.0-17.5) Hematocrit 40.8 % (39.0-53.0) Mean Corpuscular Volume 87 fL (79-100) Mean Corpuscular Hemoglobin 30 pg (25-35) Mean Corpuscular Hemoglobin Concent 34 g/dL (31-37) Red Cell Distribution Width 13.5 % (11.5-14.5) Platelet Count 164 x10^3/uL (140-400) Neutrophils (%) (Auto) 46 % (31-73) Lymphocytes (%) (Auto) 34 % (24-48) Monocytes (%) (Auto) 16 % (0-9) Eosinophils (%) (Auto) 2 % (0-3) Basophils (%) (Auto) 1 % (0-3) Neutrophils # (Auto) 1.5 x10^3uL (1.8-7.7) Lymphocytes # (Auto) 1.1 x10^3/uL (1.0-4.8) Monocytes # (Auto) 0.5 x10^3/uL (0.0-1.1) Eosinophils # (Auto) 0.1 x10^3/uL (0.0-0.7) Basophils # (Auto) 0.0 x10^3/uL (0.0-0.2) Sodium Level 140 mmol/L (136-145) Potassium Level 3.9 mmol/L (3.5-5.1) Chloride Level 103 mmol/L (98-107) Carbon Dioxide Level 28 mmol/L (21-32) Anion Gap 9 (6-14) Blood Urea Nitrogen 28 mg/dL (8-26) Creatinine 1.1 mg/dL (0.7-1.3) Estimated GFR (Cockcroft-Gault) 79.6 BUN/Creatinine Ratio 25 (6-20) Glucose Level 91 mg/dL (70-99) Calcium Level 9.4 mg/dL (8.5-10.1) Total Bilirubin 0.5 mg/dL (0.2-1.0) Aspartate Amino Transf (AST/SGOT) 20 U/L (15-37) Alanine Aminotransferase (ALT/SGPT) 20 U/L (16-63) Alkaline Phosphatase 44 U/L (46-116) Troponin I Quantitative < 0.017 ng/mL (0.000-0.055) < 0.017 ng/mL (0.000-0.055) BK-Xmm-D-Type Natriuretic Peptide 30 pg/mL (0-124) Total Protein 7.2 g/dL (6.4-8.2) Albumin 3.7 g/dL (3.4-5.0) Albumin/Globulin Ratio 1.1 (1.0-1.7) Prothrombin Time 14.5 SEC (11.7-14.0) Prothromb Time International Ratio 1.2 (0.8-1.1) Triglycerides Level 83 mg/dL (0-150) Cholesterol Level 182 mg/dL (0-200) LDL Cholesterol, Calculated 104 mg/dL (0-100) VLDL Cholesterol, Calculated 17 mg/dL (0-40) Non-HDL Cholesterol Calculated 121 mg/dL (0-129) HDL Cholesterol 61 mg/dL (40-60) Cholesterol/HDL Ratio 3.0 Laboratory Tests Test 10/29/17 08:45 Troponin I Quantitative < 0.017 ng/mL (0.000-0.055) Triglycerides Level 83 mg/dL (0-150) Cholesterol Level 182 mg/dL (0-200) LDL Cholesterol, Calculated 104 mg/dL (0-100) VLDL Cholesterol, Calculated 17 mg/dL (0-40) Non-HDL Cholesterol Calculated 121 mg/dL (0-129) HDL Cholesterol 61 mg/dL (40-60) Cholesterol/HDL Ratio 3.0 Allergies Allergies Coded Allergies Type Severity Reaction Last Updated Verified No Known Drug Allergies 07/17/14 No Disposition/Orders: D/C to Home KIM BROOKS MD Oct 29, 2017 16:24
--- NOTE | 2017-10-29 22:23 | CONS ---
DATE OF CONSULTATION: LOCATION: Room 117. ATTENDING PHYSICIAN: Dr. Kessler. REASON FOR CONSULTATION: The patient was seen at the request of Dr. Miller for rehab evaluation of his neck pain. 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 This patient complains of pain in his neck for the last 3 months. He was in the cold basement in [place], [place] about 3 months ago. He denies any radiation of pain to the extremities or any trouble with his bowel or bladder control or any tingling, numbness sensation in the extremities or balance problems. The patient admits occasional right shoulder area pain and he also admits left ankle pain and stiffness and swelling and he was told that he had gouty arthritis, for which he has been taking ibuprofen 800 mg three times a day. He denies any stomach upset taking ibuprofen. The patient with known hypertension. He used to smoke and drink, but not anymore. He is not known allergic to any medication. He had MRI scan of his cervical vertebrae, which revealed multilevel degenerative disk disease and degenerative joint disease of cervical vertebrae with mild degree of neural foraminal and central spinal stenosis. PHYSICAL EXAMINATION: The patient on physical examination today revealed a middle-aged male. He is alert, oriented to time, place, person and circumstance and follows commands appropriately, moves all 4 extremities voluntarily where he had 4+/5 grade muscle strength and deep tendon reflexes are 2+ and symmetrical with absent ankle jerks and he had equal perception of touch and pinprick sensation bilaterally. He had mild crepitus on range of motion of left ankle and tenderness to palpation over anterolateral aspect of his left ankle. He had significant limitation of cervical spine movement, especially rotational movement and [id number] flexion, also some discomfort on extension of his neck. The patient is independent with bed mobility and transfers and he can walk on her tiptoes and on his heels. He has some difficulty trying to walk on a straight line, one foot in front of other. His skin is intact at this time. ASSESSMENT: 1. A middle-aged male with chronic neck pain from degenerative disk disease and degenerative joint disease of cervical vertebrae without any clinical evidence of ongoing cervical radiculopathy or cervical spinal stenosis. 2. Gouty arthritis, left ankle. 3. Clinical evidence of peripheral neuropathy. 4. History of hypertension. RECOMMENDATIONS: I have instructed him in a home program of physical modalities and relax stretching exercise to his neck muscles and advised to continue taking ibuprofen 3 times a day with food as long as it does not irritate his stomach and also continue taking muscle relaxant and pain medication on as needed basis and avoid any activity that irritates his neck. The patient was advised that he can be discharged to home and I will be glad to see him for followup on as needed basis. Dr. Miller, I appreciate asking me to participate in the care of this interesting patient. BIRDIE TRIPP MD DR: SARINA/ashutosh JOB#: [id number] / [id number] FLY
== END 2017-10-29 16:55 | disposition home or self-care (01) | DRG 552 ==
LOC: ER 13:21 → 5 NORTH 15:40
PROVIDERS: ADMIT Internal Medicine; ATTEND Internal Medicine
DX: M50.30 Other cervical disc degeneration, unspecified cervical region (principal); M48.02 Spinal stenosis, cervical region; D70.9 Neutropenia, unspecified; M47.812 Spondylosis without myelopathy or radiculopathy, cervical region; F03.90 Unspecified dementia, unspecified severity, without behavioral disturbance, psychotic disturbance, mood disturbance, and anxiety; G62.9 Polyneuropathy, unspecified; G89.29 Other chronic pain; I10 Essential (primary) hypertension; M10.9 Gout, unspecified; M25.78 Osteophyte, vertebrae; R07.9 Chest pain, unspecified; M12.88 Other specific arthropathies, not elsewhere classified, other specified site; M40.202 Unspecified kyphosis, cervical region; Z87.891 Personal history of nicotine dependence; Z88.5 Allergy status to narcotic agent
CPT/HCPCS: 36415; 70491; 71045; 72141; 78452; 80053; 80061; 83880; 84484; 85025; 85610; 93005; 93017; 93306; 96374; 96375; 96376; A9500; J2270; J2785; Q9967; 99285-25

== ENCOUNTER 2018-07-20 13:59 | Emergency (ER) | payer MEDICARE ==
[~2018-07-20] VITALS: Ht 170.2 cm; Wt 74.4 kg
[~2018-07-20 13:59] MED LIST changes: +HYDR-3164 PO; -HYDR-971 PO; +LOSA100T14 PO; -LOSA100T7 PO
[2018-07-20 14:10] VITALS: BP 160/80
--- NOTE | 2018-07-20 14:57 | PHYS DOC ---
Past Medical History Past Medical History: Dementia, Hypertension Additional Past Medical Histor: GOUT Past Surgical History: No Surgical History Additional Past Surgical Histo: KIDNEY, HERNIA REPAIR Alcohol Use: None Drug Use: None Adult General Chief Complaint Chief Complaint: HEAD INJURY/TRAUMA [facility] Patient is a 73 year old male who presents with fall. 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 He slipped getting off the machine. He has a hematoma to the R forehead. Denies loc. Rates his pain as 3/10 and sore. No interventions prior to arrival with the exception of Ice. Review of Systems Review of Systems Constitutional: Denies fever or chills [] Eyes: Denies change in visual acuity, redness, or eye pain [] HENT: Denies nasal congestion or sore throat [] Respiratory: Denies cough or shortness of breath [] Cardiovascular: No additional information not addressed in HPI [] GI: Denies abdominal pain, nausea, vomiting, bloody stools or diarrhea [] : Denies dysuria or hematuria [] Musculoskeletal: Denies back pain or joint pain [] Integument: Denies rash or skin lesions [] Neurologic: Denies headache, focal weakness or sensory changes [] Endocrine: Denies polyuria or polydipsia [] Complete systems were reviewed and found to be within normal limits, except as documented in this note. Allergies Allergies Allergies Coded Allergies Type Severity Reaction Last Updated Verified No Known Drug Allergies 07/17/14 No Physical Exam Physical Exam Constitutional: Well developed, well nourished, no acute distress, non-toxic appearance. [] HENT: Normocephalic, traumatic hematoma to R forehead, bilateral external ears normal, oropharynx moist, no oral exudates, nose normal. [] Eyes: PERRLA, EOMI, conjunctiva normal, no discharge. [] Neck: Normal range of motion, no tenderness, supple, no stridor. [] Cardiovascular:Heart rate regular rhythm, no murmur [] Lungs & Thorax: Bilateral breath sounds clear to auscultation [] Abdomen: Bowel sounds normal, soft, no tenderness, no masses, no pulsatile masses. [] Skin: Warm, dry, no erythema, no rash. [] Back: No tenderness, no CVA tenderness. [] Extremities: No tenderness, no cyanosis, no clubbing, ROM intact, no edema. [] Neurologic: Alert and oriented X 3, normal motor function, normal sensory function, no focal deficits noted. [] Psychologic: Affect normal, judgement normal, mood normal. [] Current Patient Data Vital Signs Vital Signs Date Time Temp Pulse Resp B/P (MAP) Pulse Ox O2 Delivery O2 Flow Rate FiO2 07/20/18 14:10 98.1 79 18 160/80 (106) 97 Room Air 98.1 EKG EKG [] Radiology/Procedures Radiology/Procedures []PATIENT: PAULETTE HALL EACCOUNT: [id number]#: [id number] : 1945 LOCATION: ER AGE: 73 SEX: M EXAM STATUS: REG ER ORD. PHYSICIAN: PAULETTE MIRELES APRN REASON: fall PROCEDURE: CT HEAD WO CONTRAST EXAM: CT HEAD WITHOUT CONTRAST. HISTORY: Fall, head injury. TECHNIQUE: Computed tomography of the head was performed without intravenous contrast. COMPARISON: None. FINDINGS: There is no intracranial hemorrhage. Hypoattenuation within the periventricular white matter indicates mild chronic microangiopathic change. Prominence of the lateral ventricles and hemispheric sulci indicates mild atrophy. The visualized paranasal sinuses appear clear. The orbits are unremarkable. The temporal bones are unremarkable. The calvarium reveals no suspicious lesions. There is a moderate right forehead scalp hematoma. IMPRESSION: 1. No acute intracranial findings. Moderate right forehead scalp hematoma. 2. Mild atrophy and chronic microangiopathic white matter change. *One or more of the following individualized dose reduction techniques were utilized for this examination: 1. Automated exposure control. 2. Adjustment of the mA and/or kV according to patient size. 3. Use of iterative reconstruction technique. Electronically signed by: Jared Winston MD (07/20/2018 3:11 PM) [facility] Course & Med Decision Making Course & Med Decision Making Pertinent Labs and Imaging studies reviewed. (See chart for details) Will get CT of the head. Patient is agreeable. CT head is negative. Will d/c home. Dragon Disclaimer Dragon Disclaimer This electronic medical record was generated, in whole or in part, using a voice recognition dictation system. Departure Departure Impression: Primary Impression: Fall Disposition: HOME, SELF-CARE Condition: STABLE Referrals: NO PCP (PCP) Patient Instructions: Fall Prevention and Home Safety Additional Instructions: Please follow up with primary care doctor as needed. Return to ER if symptoms worsen. Problem Qualifiers Primary Impression: Fall Encounter type: initial encounter Qualified Codes: W19.XXXA - Unspecified fall, initial encounter PAULETTE MIRELES APRN Jul 20, 2018 14:57
--- NOTE | 2018-07-20 15:22 | RAD ---
EXAM: CT HEAD WITHOUT CONTRAST. HISTORY: Fall, head injury. TECHNIQUE: Computed tomography of the head was performed without intravenous contrast. COMPARISON: None. FINDINGS: There is no intracranial hemorrhage. Hypoattenuation within the periventricular white matter indicates mild chronic microangiopathic change. Prominence of the lateral ventricles and hemispheric sulci indicates mild atrophy. The visualized paranasal sinuses appear clear. The orbits are unremarkable. The temporal bones are unremarkable. The calvarium reveals no suspicious lesions. There is a moderate right forehead scalp hematoma. IMPRESSION: 1. No acute intracranial findings. Moderate right forehead scalp hematoma. 2. Mild atrophy and chronic microangiopathic white matter change. *One or more of the following individualized dose reduction techniques were utilized for this examination: 1. Automated exposure control. 2. Adjustment of the mA and/or kV according to patient size. 3. Use of iterative reconstruction technique. Electronically signed by: Jared Winston MD (07/20/2018 3:11 PM) [facility]
== END 2018-07-20 15:39 | disposition home or self-care (01) ==
LOC: ER 13:59
DX: S00.83XA Contusion of other part of head, initial encounter (principal); R51 Headache; I10 Essential (primary) hypertension; F03.90 Unspecified dementia, unspecified severity, without behavioral disturbance, psychotic disturbance, mood disturbance, and anxiety; W01.198A Fall on same level from slipping, tripping and stumbling with subsequent striking against other object, initial encounter; Y93.89 Activity, other specified; Y92.89 Other specified places as the place of occurrence of the external cause; Y99.8 Other external cause status
CPT/HCPCS: 70450; 99284-25

== ENCOUNTER 2018-11-20 14:25 | Emergency (ER) | payer MEDICARE ==
[~2018-11-20] VITALS: Ht 171.4 cm; Wt 74.4 kg
--- NOTE | 2018-11-20 14:56 | PHYS DOC ---
Past Medical History Past Medical History: Dementia, Hypertension Additional Past Medical Histor: GOUT Past Surgical History: No Surgical History Additional Past Surgical Histo: KIDNEY, HERNIA REPAIR Additional Information: quit smoking > 30 years ago Alcohol Use: None Drug Use: None Adult General Chief Complaint Chief Complaint: URINARY RETENTION HPI HPI 73-year-old male presenting the emergency department today with urinary retention that started within the past 24 hours. He was recently in the past few days started on FESOTERODINE . Since starting this medication the patient has been unable to keep. He last urinated last night. He has suprapubic abdominal pain. ros: He denies nausea vomiting fevers or chills. All other review of systems is negative. ED course: 73-year-old male presenting the emergency department today with urinary retention after starting FESOTERODINE. Urinary catheter was placed. Urinalysis ordered. Blood on urinalysis without any signs of infection. Negative nitrite. Negative leuk esterase. We will leave the Krause catheter in place and refer him to urology for further management and care of the next 2-3 days. Allergies Allergies Allergies Coded Allergies Type Severity Reaction Last Updated Verified No Known Drug Allergies 07/17/14 No Physical Exam Physical Exam Constitutional: Well developed, well nourished, no acute distress, non-toxic appearance. [] HENT: Normocephalic, atraumatic, bilateral external ears normal, oropharynx moist, no oral exudates, nose normal. [] Eyes: PERRLA, EOMI, conjunctiva normal, no discharge. [] Neck: Normal range of motion, no tenderness, supple, no stridor. [] Cardiovascular:Heart rate regular rhythm, no murmur [] Lungs & Thorax: Bilateral breath sounds clear to auscultation [] Abdomen: Bowel sounds normal, soft, no tenderness, no masses, no pulsatile masses. neg mcburneys point. neg murphys sign. Skin: Warm, dry, no erythema, no rash. [] Back: No tenderness, no CVA tenderness. [] Extremities: No tenderness, no cyanosis, no clubbing, ROM intact, no edema. [] Neurologic: Alert and oriented X 3, normal motor function, normal sensory function, no focal deficits noted. [] Psychologic: Affect normal, judgement normal, mood normal. [] Current Patient Data Vital Signs Vital Signs Date Time Temp Pulse Resp B/P (MAP) Pulse Ox O2 Delivery O2 Flow Rate FiO2 11/20/18 16:08 78 18 100 11/20/18 14:31 98.1 186/102 (130) Room Air 98.1 Lab Values Laboratory Tests Test 11/20/18 14:55 Urine Collection Type Unknown Urine Color Yellow Urine Clarity Clear Urine pH 7.5 Urine Specific [place] 1.020 Urine Protein Negative mg/dL (NEG-TRACE) Urine Glucose (UA) Negative mg/dL (NEG) Urine Ketones (Stick) Negative mg/dL (NEG) Urine Blood Moderate (NEG) Urine Nitrite Negative (NEG) Urine Bilirubin Negative (NEG) Urine Urobilinogen Dipstick 1.0 mg/dL (0.2 mg/dL) Urine Leukocyte Esterase Negative (NEG) Urine RBC >40 /HPF (0-2) Urine WBC 0 /HPF (0-4) Urine Bacteria 0 /HPF (0-FEW) Urine Mucus Marked /LPF EKG EKG [] Radiology/Procedures Radiology/Procedures [] Course & Med Decision Making Course & Med Decision Making Pertinent Labs and Imaging studies reviewed. (See chart for details) [] Dragon Disclaimer Dragon Disclaimer This electronic medical record was generated, in whole or in part, using a voice recognition dictation system. Departure Departure Impression: Primary Impression: Urinary retention Disposition: 01 HOME, SELF-CARE Condition: STABLE Referrals: ASHVIN CORONADO MD (PCP) Patient Instructions: Krause Catheter Care, Adult, Urinary Retention, Acute, Male Additional Instructions: Thank you for allowing us to participate in your care today. Return to the emergency department you have any new or worsening symptoms, or if you are concerned for any reason. Return to emergency department if you have any new or concerning symptoms including but not limited to fever, chills, nausea, vomiting, intractable pain, any new rashes, chest pain, shortness of air, uncontrolled bleeding, difficulty breathing, and/or vision loss. Follow up with urology in 2-3 days. Call your Primary Doctor tomorrow and inform them of your visit today. If you do not have a primary care provider we are happy to provide you with a list of our primary care providers contact information. This condition should be evaluated by your primary care physician and any recommended consulting services for continued management within 2 days after discharge. If at any time, you are having difficulty getting into your primary care doctor or a specialist, return to the emergency department. MINH GONZALES MD Nov 20, 2018 14:56
[2018-11-20 16:08] VITALS: BP 155/86
[2018-11-20 16:30] LABS: BILIRUBIN,URINE NEGATIVE (NEG); CLARITY,URINE CLEAR; COLOR,URINE YELLOW; NITRITE,URINE NEGATIVE (NEG); PH,URINE 7.5; PROTEIN,URINE NEGATIVE (NEG-TRACE)
[2018-11-20 16:35] LABS: RBC,URINE >40 /HPF (0-2)
[2018-11-20 16:36] LABS: BACTERIA,URINE 0 /HPF (0-FEW); WBC,URINE 0 /HPF (0-4)
[2018-11-21] MEDS ORDERED: OPIU1SUP2 RC (16:34)
== END 2018-11-20 17:10 | disposition home or self-care (01) ==
LOC: ER 14:25
DX: R33.9 Retention of urine, unspecified (principal); I10 Essential (primary) hypertension; Z87.891 Personal history of nicotine dependence
CPT/HCPCS: 51702; 81001; 99284

== ENCOUNTER 2018-11-21 15:01 | Emergency (ER) | payer MEDICARE ==
[~2018-11-21] VITALS: Ht 170.2 cm; Wt 78.9 kg
[2018-11-21 15:18] VITALS: BP 169/101
[2018-11-21] MEDS ORDERED: LIDOCAINE 2% JELLY 6ML IN APPLICATOR. ONE (15:55)
[2018-11-21] MEDS ORDERED: OPIU1SUP2 RC (16:34)
--- NOTE | 2018-11-21 16:34 | PHYS DOC ---
Past Medical History Past Medical History: Dementia, Hypertension Additional Past Medical Histor: GOUT Past Surgical History: No Surgical History Additional Past Surgical Histo: KIDNEY, HERNIA REPAIR Alcohol Use: None Drug Use: None Adult General Chief Complaint Chief Complaint: URINE CATHETER PROBLEM HPI HPI Patient is a 73 year old AA male who presents to the ER with complaints of urethral pain at catheter site and leaking of urine from the tip of his penis. Pt states that he had a catheter placed in this ER yesterday after he was unable to urinate after being prescribed a new medication. Pt states it feels like his bladder is spasming and there is urine leaking out the tip of his penis. He rates his pain a 10/10 on the pain scale, there are no alleviating or exacerbating factors. Review of Systems Review of Systems Constitutional: Denies fever or chills [] Eyes: Denies redness, or eye pain [] HENT: Denies nasal congestion or sore throat [] Respiratory: Denies cough or shortness of breath [] Cardiovascular: No additional information not addressed in HPI [] GI: Denies abdominal pain, nausea, vomiting, or diarrhea [] : See HPI Musculoskeletal: Denies back pain or joint pain [] Integument: Denies rash or skin lesions [] Neurologic: Denies headache, focal weakness or sensory changes [] All other systems were reviewed and found to be within normal limits, except as documented in this note. Current Medications Current Medications Current Medications Medications (Trade) Dose Ordered Sig/Gera Start Time Stop Time Status Last Admin Dose Admin Lidocaine HCl (Glydo (Lidocaine) Jelly) 1 jaden 1X ONCE 11/21/18 16:45 11/21/18 16:46 Allergies Allergies Allergies Coded Allergies Type Severity Reaction Last Updated Verified No Known Drug Allergies 07/17/14 No Physical Exam Physical Exam Constitutional: Well developed, well nourished, no acute distress, non-toxic appearance. [] HENT: Normocephalic, atraumatic, bilateral external ears normal,nose normal. [] Eyes: PERRLA, EOMI, conjunctiva normal, no discharge. [] Neck: Normal range of motion, no stridor. [] Cardiovascular:Heart rate regular rhythm Lungs & Thorax: Bilateral breath sounds clear to auscultation [] Abdomen: soft, no tenderness, no masses, no pulsatile masses : urethral catheter in place, clear urine discharge around urethra, no pus, no bleeding [] Skin: Warm, dry, no erythema, no rash. [] Extremities: No cyanosis, ROM intact, no edema. [] Neurologic: Alert and oriented X 3, no focal deficits noted. [] Psychologic: Affect normal, judgement normal, mood normal. [] Current Patient Data Vital Signs Vital Signs Date Time Temp Pulse Resp B/P (MAP) Pulse Ox O2 Delivery O2 Flow Rate FiO2 11/21/18 15:18 98.4 84 14 169/101 (123) 96 Room Air 98.4 EKG EKG [] Radiology/Procedures Radiology/Procedures hess catheter was removed by the nurse. An 18 frisian catheter was inserted after a urojet was injected into the urethra. Pt tolerated procedure well. Catheter draining blood tinged urine immediately following insertion. Catheter was secured to right thigh with a statlock. [] Course & Med Decision Making Course & Med Decision Making Pertinent Labs and Imaging studies reviewed. (See chart for details) [] Dragon Disclaimer Dragon Disclaimer This electronic medical record was generated, in whole or in part, using a voice recognition dictation system. Departure Departure Impression: Primary Impression: Encounter for Hess catheter replacement Disposition: HOME, SELF-CARE Condition: STABLE Referrals: ASHVIN CORONADO MD (PCP) Patient Instructions: Hess Catheter Care, Adult Additional Instructions: Follow up with your doctor next week as planned. Fill the prescription and use as directed as needed for bladder spasms. Return to the ER if symptoms worsen. Scripts Opium/Belladonna Alkaloids (BELLADONNA-OPIUM 16.2-30 SUPP) 1 Each Supp.rect 1 EACH RC Q6-8HRS PRN for BLADDER SPASM for 2 Days, #6 SUPP.RECT 0 Refills Prov: LOLI BYRNE HYDROPULPER 11/21/18 LOLI BYRNE HYDROPULPER Nov 21, 2018 16:34
[2018-11-21] MEDS ORDERED: LIDOCAINE 2% JELLY 6ML IN APPLICATOR. MM ONE (16:45)
== END 2018-11-21 16:54 | disposition home or self-care (01) ==
LOC: ER 15:01
DX: Z46.6 Encounter for fitting and adjustment of urinary device (principal); I10 Essential (primary) hypertension
CPT/HCPCS: 51702; 99284

== ENCOUNTER 2018-11-23 20:35 | Emergency (ER) | payer MEDICARE ==
[~2018-11-23] VITALS: Ht 170.2 cm; Wt 78.9 kg
[~2018-11-23 20:35] MED LIST changes: +OPIU1SUP2 RC
[2018-11-23 20:45] VITALS: BP 121/70
[2018-11-23] MEDS ORDERED: LIDOCAINE 2% JELLY 6ML IN APPLICATOR. MM ONE (21:30)
[2018-11-23 21:52] LABS: BILIRUBIN,URINE MODERATE (NEG); CLARITY,URINE CLOUDY; COLOR,URINE RED; NITRITE,URINE NEGATIVE (NEG); PROTEIN,URINE >=300 mg/dL (NEG-TRACE)
[2018-11-23 21:58] LABS: RBC,URINE TNTC /HPF (0-2)
[2018-11-23 21:59] LABS: BACTERIA,URINE FEW /HPF (0-FEW); SQUAMOUS EPITHELIAL CELL,UR OCC /LPF
[2018-11-23] MEDS ORDERED: CIPR500T94 PO (22:13)
--- NOTE | 2018-11-23 22:14 | PHYS DOC ---
Past Medical History Past Medical History: Dementia, Hypertension Additional Past Medical Histor: GOUT; URINARY RETENTION Past Surgical History: No Surgical History Additional Past Surgical Histo: KIDNEY, HERNIA REPAIR Alcohol Use: None Drug Use: None Adult General Chief Complaint Chief Complaint: URINE CATHETER PROBLEM HPI HPI Patient is a 73 year old male patient with history of dementia, hypertension who presents to the ED today complaining of catheter leaking around the penis. Patient is in the ED with a family member who reports patient has had a Krause catheter since November 20, 2018. Family member is not sure why patient catheter was placed but states patient was seen by urology who started him on a medicine that begins with T to help him control his urine (likely Tamsulosin). Patient is a very poor historian. Family members are not good historian either. Review of Systems Review of Systems Constitutional: Denies fever or chills [] GI: Denies abdominal pain, nausea, vomiting, bloody stools or diarrhea [] : Reports urinary catheter leaking. Denies dysuria or hematuria [] Musculoskeletal: Denies back pain or joint pain [] Integument: Denies rash or skin lesions [] Neurologic: Denies headache, focal weakness or sensory changes [] All other systems were reviewed and found to be within normal limits, except as documented in this note. Current Medications Current Medications Current Medications Medications (Trade) Dose Ordered Sig/Gera Start Time Stop Time Status Last Admin Dose Admin Lidocaine HCl (Glydo (Lidocaine) Jelly) 1 jaden 1X ONCE 11/23/18 21:30 11/23/18 21:31 DC 11/23/18 21:23 1 JADEN Allergies Allergies Allergies Coded Allergies Type Severity Reaction Last Updated Verified No Known Drug Allergies 07/17/14 No Physical Exam Physical Exam Constitutional: Well developed, well nourished, no acute distress, non-toxic appearance. [] Abdomen: Bowel sounds normal, soft, no tenderness, no masses, no pulsatile masses. [] Male -Krause catheter in place, the catheter has pink tinged urine. Skin: Warm, dry, no erythema, no rash. [] Back: No tenderness, no CVA tenderness. [] Extremities: No tenderness, no cyanosis, no clubbing, ROM intact, no edema. [] Neurologic: Alert and oriented X 3, normal motor function, normal sensory function, no focal deficits noted. [] Psychologic: Affect normal, judgement normal, mood normal. [] Current Patient Data Vital Signs Vital Signs Date Time Temp Pulse Resp B/P (MAP) Pulse Ox O2 Delivery O2 Flow Rate FiO2 11/23/18 20:45 98.2 72 16 121/70 (87) 100 Room Air 98.2 Lab Values Laboratory Tests Test 11/23/18 21:40 Urine Collection Type U cath Urine Color Red Urine Clarity Cloudy Urine pH 6.0 Urine Specific [place] 1.025 Urine Protein >=300 mg/dL (NEG-TRACE) Urine Glucose (UA) Negative mg/dL (NEG) Urine Ketones (Stick) Trace mg/dL (NEG) Urine Blood Large (NEG) Urine Nitrite Negative (NEG) Urine Bilirubin Moderate (NEG) Urine Urobilinogen Dipstick 1.0 mg/dL (0.2 mg/dL) Urine Leukocyte Esterase Moderate (NEG) Urine RBC Tntc /HPF (0-2) Urine WBC 5-10 /HPF (0-4) Urine Squamous Epithelial Cells Occ /LPF Urine Bacteria Few /HPF (0-FEW) Urine Mucus Slight /LPF EKG EKG [] Radiology/Procedures Radiology/Procedures [] Course & Med Decision Making Course & Med Decision Making Pertinent Labs and Imaging studies reviewed. (See chart for details) This is a 73-year-old male patient with a Krause catheter presenting to the ED today complaining of leaking around the catheter. Nursing staff switch the catheter to a coud� catheter. Urine analysis shows infection. Discharged on Cipro. Patient is on Flomax already. Has an appointment with urologist tomorrow. Dragon Disclaimer Dragon Disclaimer This electronic medical record was generated, in whole or in part, using a voice recognition dictation system. Departure Departure Impression: Primary Impression: Encounter for Krause catheter replacement Additional Impression: Urinary tract infection Disposition: HOME, SELF-CARE Condition: STABLE Referrals: ASHVIN CORONADO MD (PCP) OLIVER GIFFORD MD Follow up with the urologist tomorrow Patient Instructions: Catheter-Associated Urinary Tract Infection FAQs - KONG, Krause Catheter Care, Adult Additional Instructions: We switched your catheter, please follow-up with the urologist tomorrow. Your urine has some infection. We put you on antibiotics, ensure you complete them. Scripts Ciprofloxacin Hcl (CIPRO) 500 Mg Tablet 1 TAB PO BID, #14 TAB Prov: TITA DONG APRN 11/23/18 Problem Qualifiers Additional Impression: Urinary tract infection Urinary tract infection type: catheter-associated UTI Indwelling urinary catheter type: indwelling urethral catheter Encounter type: initial encounter Qualified Codes: T83.511A - Infection and inflammatory reaction due to indwelling urethral catheter, initial encounter; N39.0 - Urinary tract infection, site not specified TITA DONG [employer]ER Nov 23, 2018 22:14
== END 2018-11-23 22:40 | disposition home or self-care (01) ==
LOC: ER 20:35
DX: T83.511A Infection and inflammatory reaction due to indwelling urethral catheter, initial encounter (principal); I10 Essential (primary) hypertension; F03.90 Unspecified dementia, unspecified severity, without behavioral disturbance, psychotic disturbance, mood disturbance, and anxiety; M10.9 Gout, unspecified; Z98.890 Other specified postprocedural states; Y82.8 Other medical devices associated with adverse incidents; Y92.89 Other specified places as the place of occurrence of the external cause
CPT/HCPCS: 51702; 81001; 87086; 99284-25

== ENCOUNTER 2019-03-13 15:32 | Emergency (ER) | payer MEDICARE ==
[~2019-03-13] VITALS: Ht 185.4 cm; Wt 79.5 kg
[~2019-03-13 15:32] MED LIST changes: +CIPR500T94 PO
--- NOTE | 2019-03-13 16:07 | PHYS DOC ---
Past Medical History Past Medical History: Dementia, Hypertension Additional Past Medical Histor: GOUT; URINARY RETENTION Past Surgical History: No Surgical History Additional Past Surgical Histo: KIDNEY, HERNIA REPAIR Alcohol Use: None Drug Use: None Adult General Chief Complaint Chief Complaint: ABDOMINAL PAIN [facility] HPI Patient is a 74 year old male] who presents with [right upper abdominal pain. Patient reports he has had discomfort for the past few days, however discomfort little bit worse over the last 2 days. States is a intermittent, aching pain. Denies sharp pain. Denies shortness of breath. Denies nausea vomiting or diarrhea. Reports last bowel movement this morning. Denies any change in bowel movements recently. Does report prior history of abdominal hernia surgical repair. States he has not taken any medications for this discomfort. Does report he has frequent urination, however this is no different than what he normally has. ] Review of Systems Review of Systems Constitutional: Denies fever or chills [] Eyes: Denies change in visual acuity, redness, or eye pain [] HENT: Denies nasal congestion or sore throat [] Respiratory: Denies cough or shortness of breath [] Cardiovascular: No additional information not addressed in HPI [] GI: Reports right upper abdominal pain, denies nausea, vomiting, bloody stools or diarrhea [] : Denies dysuria or hematuria does report taking medications for his prostate, so he frequently urinates large amounts. Spouse reports is unchanged from his normal [] Musculoskeletal: Denies back pain or joint pain [] Integument: Denies rash or skin lesions [] Neurologic: Denies headache, focal weakness or sensory changes [] Endocrine: Denies polyuria or polydipsia [] All other systems were reviewed and found to be within normal limits, except as documented in this note. Current Medications Current Medications Current Medications Medications (Trade) Dose Ordered Sig/Gera Start Time Stop Time Status Last Admin Dose Admin Info (CONTRAST GIVEN -- Rx MONITORING) 1 each PRN DAILY PRN 03/13/19 17:15 03/15/19 17:14 Iohexol (Omnipaque 300 Mg/ml) 75 ml 1X ONCE 03/13/19 17:15 03/13/19 17:16 DC Allergies Allergies Allergies Coded Allergies Type Severity Reaction Last Updated Verified No Known Drug Allergies 07/17/14 No Physical Exam Physical Exam Constitutional: Well developed, well nourished, no acute distress, non-toxic appearance. [] HENT: Normocephalic, atraumatic, bilateral external ears normal, oropharynx mo ist, no oral exudates, nose normal. [] Eyes: PERRLA, EOMI, conjunctiva normal, no discharge. [] Neck: Normal range of motion, no tenderness, supple, no stridor. [] Cardiovascular:Heart rate regular rhythm, no murmur [] Lungs & Thorax: Bilateral breath sounds clear to auscultation [] Abdomen: Bowel sounds normal, soft, no tenderness, no masses, no pulsatile masses. Liver margin minimally enlarged. Tenderness noted on palpation to RUQ. Negative Abird's. Negative Rovsig. [] Skin: Warm, dry, no erythema, no rash. [] Back: No tenderness, no CVA tenderness. [] Extremities: No tenderness, no cyanosis, no clubbing, ROM intact, no edema. [] Neurologic: Alert and oriented X 3, normal motor function, normal sensory function, no focal deficits noted. [] Psychologic: Affect normal, judgement normal, mood normal. [] Current Patient Data Vital Signs Vital Signs Date Time Temp Pulse Resp B/P (MAP) Pulse Ox O2 Delivery O2 Flow Rate FiO2 03/13/19 15:49 98.2 75 16 180/95 (123) 99 Room Air 98.2 Lab Values Laboratory Tests Test 03/13/19 16:15 03/13/19 16:28 Urine Collection Type Unknown Urine Color Yellow Urine Clarity Cloudy Urine pH 7.0 Urine Specific [place] 1.010 Urine Protein Negative mg/dL (NEG-TRACE) Urine Glucose (UA) Negative mg/dL (NEG) Urine Ketones (Stick) Negative mg/dL (NEG) Urine Blood Negative (NEG) Urine Nitrite Negative (NEG) Urine Bilirubin Negative (NEG) Urine Urobilinogen Dipstick 0.2 mg/dL (0.2 mg/dL) Urine Leukocyte Esterase Negative (NEG) Urine RBC 0 /HPF (0-2) Urine WBC 0 /HPF (0-4) Urine Bacteria 0 /HPF (0-FEW) White Blood Count 3.7 x10^3/uL (4.0-11.0) L Red Blood Count 4.88 x10^6/uL (4.30-5.70) Hemoglobin 14.3 g/dL (13.0-17.5) Hematocrit 42.7 % (39.0-53.0) Mean Corpuscular Volume 87 fL (79-100) Mean Corpuscular Hemoglobin 29 pg (25-35) Mean Corpuscular Hemoglobin Concent 33 g/dL (31-37) Red Cell Distribution Width 13.4 % (11.5-14.5) Platelet Count 149 x10^3/uL (140-400) Neutrophils (%) (Auto) 43 % (31-73) Lymphocytes (%) (Auto) 43 % (24-48) Monocytes (%) (Auto) 10 % (0-9) H Eosinophils (%) (Auto) 3 % (0-3) Basophils (%) (Auto) 1 % (0-3) Neutrophils # (Auto) 1.6 x10^3/uL (1.8-7.7) L Lymphocytes # (Auto) 1.6 x10^3/uL (1.0-4.8) Monocytes # (Auto) 0.4 x10^3/uL (0.0-1.1) Eosinophils # (Auto) 0.1 x10^3/uL (0.0-0.7) Basophils # (Auto) 0.0 x10^3/uL (0.0-0.2) Prothrombin Time 13.4 SEC (11.7-14.0) Prothrombin Time INR 1.1 (0.8-1.1) Sodium Level 139 mmol/L (136-145) Potassium Level 4.2 mmol/L (3.5-5.1) Chloride Level 102 mmol/L (98-107) Carbon Dioxide Level 29 mmol/L (21-32) Anion Gap 8 (6-14) Blood Urea Nitrogen 13 mg/dL (8-26) Creatinine 1.1 mg/dL (0.7-1.3) Estimated GFR (Cockcroft-Gault) 79.2 BUN/Creatinine Ratio 12 (6-20) Glucose Level 95 mg/dL (70-99) Calcium Level 9.4 mg/dL (8.5-10.1) Magnesium Level 2.1 mg/dL (1.8-2.4) Total Bilirubin 0.4 mg/dL (0.2-1.0) Aspartate Amino Transferase (AST) 20 U/L (15-37) Alanine Aminotransferase (ALT) 13 U/L (16-63) L Alkaline Phosphatase 49 U/L (46-116) Troponin I Quantitative < 0.017 ng/mL (0.000-0.055) Total Protein 7.5 g/dL (6.4-8.2) Albumin 4.1 g/dL (3.4-5.0) Albumin/Globulin Ratio 1.2 (1.0-1.7) Lipase 62 U/L (73-393) L Laboratory Tests 03/13/19 16:28 Laboratory Tests 03/13/19 16:28 EKG EKG [] Radiology/Procedures Radiology/Procedures []Examination: CT ABD PELV W/ IV CONTRST ONLY History: Right upper quadrant abdominal pain Comparison/Correlation: 05/22/2012 CT abdomen and pelvis with contrast Findings: Axial images of the abdomen and pelvis were obtained following IV contrast. Sagittal and coronal reformatted images were provided. Visualized lung bases are clear. Liver, spleen, pancreas, adrenal glands, and kidneys are normal. Moderate quantity of stool in the colon noted. No additional gas. No bowel obstruction. Appendix is normal. Gallbladder fossa is unremarkable. No enlarged abdominal or pelvic lymph nodes. No ascites or pelvic free fluid. Minimal diverticulosis. Urinary bladder is unremarkable. Prostate gland is enlarged measuring 5 cm x 5.5 cm. Moderate to severe L4-5 and L5-6 disc space narrowing is present with endplate sclerosis. Vertebral body heights are adequate. No fracture or bony destructive finding. Impression: Prostatomegaly. No inflammatory process. Minimal diverticulosis. PQRS Compliance Statement: One or more of the following individualized dose reduction techniques were utilized for this examination: 1. Automated exposure control 2. Adjustment of the mA and/or kV according to patient size 3. Use of iterative reconstruction technique Electronically signed by: Francisco J Maldonado MD (03/13/2019 5:28 PM) [facility] Course & Med Decision Making Course & Med Decision Making Pertinent Labs and Imaging studies reviewed. (See chart for details) Discussed lab results and imaging results with patient, with noted prostate enlargement [Patient reports he has appointment with Dr May, Urology in [facility] coming up next month. ] Discussed importance of keeping that follow up next month to re-evaluate prostate. Dragon Disclaimer Dragon Disclaimer This electronic medical record was generated, in whole or in part, using a voice recognition dictation system. Departure Departure Impression: Primary Impression: Enlarged prostate Additional Impression: Abdominal discomfort Disposition: HOME, SELF-CARE Condition: STABLE Referrals: ASHVIN CORONADO MD (PCP) Patient Instructions: Prostate Laser Surgery, Care After Additional Instructions: As we discussed, make sure you keep your appointment with Dr. May next month and follow-up with urology for your continued enlarged prostate. Continue to take your home medications. Problem Qualifiers PAMELA PRABHAKAR APRN Mar 13, 2019 16:07
[2019-03-13 16:22] LABS: BILIRUBIN,URINE NEGATIVE (NEG); CLARITY,URINE CLOUDY; COLOR,URINE YELLOW; NITRITE,URINE NEGATIVE (NEG); PROTEIN,URINE NEGATIVE (NEG-TRACE); UROBILINOGEN,URINE 0.2 mg/dL (0.2 mg/dL)
[2019-03-13 16:35] LABS: BASO % 1 % (0-3); EOS # 0.1 x10^3/uL (0.0-0.7); EOS % 3 % (0-3); HEMATOCRIT 42.7 % (39.0-53.0); HEMOGLOBIN 14.3 g/dL (13.0-17.5); LYMPH # 1.6 x10^3/uL (1.0-4.8); LYMPH % 43 % (24-48); MEAN CORPUSCULAR HEMOGLOBIN 29 pg (25-35); MEAN CORPUSCULAR HGB CONC 33 g/dL (31-37); MEAN CORPUSCULAR VOLUME 87 fL (79-100); MONO # 0.4 x10^3/uL (0.0-1.1); MONO % 10 % (0-9); NEUT # 1.6 x10^3/uL (1.8-7.7); NEUT % 43 % (31-73); PLATELET COUNT 149 x10^3/uL (140-400); RED BLOOD COUNT 4.88 x10^6/uL (4.30-5.70); RED CELL DISTRIBUTION WIDTH 13.4 % (11.5-14.5); WHITE BLOOD COUNT 3.7 x10^3/uL (4.0-11.0)
[2019-03-13 16:40] LABS: BACTERIA,URINE 0 /HPF (0-FEW); RBC,URINE 0 /HPF (0-2); WBC,URINE 0 /HPF (0-4)
[2019-03-13 16:43] LABS: CALCIUM 9.4 mg/dL (8.5-10.1); CREATININE 1.1 mg/dL (0.7-1.3); GFR 79.2; POTASSIUM 4.2 mmol/L (3.5-5.1)
[2019-03-13 16:44] LABS: PROTHROMBIN TIME PATIENT 13.4 SEC (11.7-14.0)
[2019-03-13 16:49] LABS: ALBUMIN 4.1 g/dL (3.4-5.0); ALBUMIN/GLOBULIN RATIO 1.2 (1.0-1.7); MAGNESIUM 2.1 mg/dL (1.8-2.4); TOTAL BILIRUBIN 0.4 mg/dL (0.2-1.0); TOTAL PROTEIN 7.5 g/dL (6.4-8.2)
[2019-03-13] MEDS ORDERED: IOHEXOL 300 MG/ML 100ML VIAL. IV ONE (17:15)
[2019-03-13] MEDS ORDERED: CONTRAST GIVEN. MC PRN (17:15)
--- NOTE | 2019-03-13 17:31 | RAD ---
Examination: CT ABD PELV W/ IV CONTRST ONLY History: Right upper quadrant abdominal pain Comparison/Correlation: 05/22/2012 CT abdomen and pelvis with contrast Findings: Axial images of the abdomen and pelvis were obtained following IV contrast. Sagittal and coronal reformatted images were provided. Visualized lung bases are clear. Liver, spleen, pancreas, adrenal glands, and kidneys are normal. Moderate quantity of stool in the colon noted. No additional gas. No bowel obstruction. Appendix is normal. Gallbladder fossa is unremarkable. No enlarged abdominal or pelvic lymph nodes. No ascites or pelvic free fluid. Minimal diverticulosis. Urinary bladder is unremarkable. Prostate gland is enlarged measuring 5 cm x 5.5 cm. Moderate to severe L4-5 and L5-6 disc space narrowing is present with endplate sclerosis. Vertebral body heights are adequate. No fracture or bony destructive finding. Impression: Prostatomegaly. No inflammatory process. Minimal diverticulosis. PQRS Compliance Statement: One or more of the following individualized dose reduction techniques were utilized for this examination: 1. Automated exposure control 2. Adjustment of the mA and/or kV according to patient size 3. Use of iterative reconstruction technique Electronically signed by: Francisco J Maldonado MD (03/13/2019 5:28 PM) [facility]
[2019-03-13 17:45] VITALS: BP 177/85
== END 2019-03-13 18:15 | disposition home or self-care (01) ==
LOC: ER 15:32
DX: N40.1 Benign prostatic hyperplasia with lower urinary tract symptoms (principal); R35.0 Frequency of micturition; I10 Essential (primary) hypertension; F03.90 Unspecified dementia, unspecified severity, without behavioral disturbance, psychotic disturbance, mood disturbance, and anxiety; M10.9 Gout, unspecified; Z98.890 Other specified postprocedural states
CPT/HCPCS: 36415; 74177; 80053; 81001; 83690; 83735; 84484; 85025; 85610; 99285-25